=== PATIENT | male | born 1955 | race Caucasian/White ===

== ENCOUNTER 2018-01-19 08:57 | Day surgery (SDC) | payer MEDICARE, MEDICAID, SELFPAY ==
--- NOTE | 2018-01-19 | COLBX_PTH ---
PATIENT: ANDRES TORRES LOC: EN U#:[id number] AGE/SX: 62/M ROOM: RE01/19/[address]: Dr. Paul Silverman MD : 1955 BED: DIS: 01/19/2018 SPEC #: [id number] RECD: 01/19/18 12:15 STATUS: BONIFACIO DAHIANA #: [id number] STEPHANY: 01/19/18 00:[address]: Paul Silverman DEPT: SURGICAL PATHOLOGY RECD BY: Jaleel Perla ENTERED: 01/19/18 12:46 SP TYPE: COLON BX OTHR DR: Dr. Andres Rai MD Tissues: Descending colon Procedures: Surgery Specimen Level IV HEADER OPERATION: Colonoscopy PRE-OP DIAGNOSIS: Rectal bleeding TISSUE SUBMITTED: Descending colon polyp MICROSCOPIC DIAGNOSIS Descending colon polyp, biopsy: Tubulovillous adenoma. SJ:cielo 01/20/18 MICROSCOPIC DESCRIPTION Slides are reviewed. GROSS DESCRIPTION Received in fixative is one container labeled with the patient's name and designated descending colon polyp. The specimen consists of a piece of hunter-pink polyp measuring 0.8 x 0.7 x 0.4 cm. The specimen is totally submitted in one cassette. / SJ:cielo 01/19/18 TC:1 CPT: 27359
[2018-01-19 09:17] VITALS: BP 100/75; PULSE 81; RESP 20; TEMP 36.4; O2SAT 93; BMI 29.5
--- NOTE | 2018-01-19 10:12 | PCM.OPRPT ---
Problem List (1) Rectal bleeding Status: Acute Report of Operation Date of Procedure: 01/19/18 Pre-Operative Diagnosis: k62.5 rectal bleeding Post-Operative Diagnosis: Same Surgery/Procedure Performed:: [id number] colonoscopy with snare polypectomy Type of Anesthesia:: MAC Anesthesiologist: Lane Enriquez Description of Procedure: Patient was brought into the endoscopy suite. Patient was given graded anesthesia and placed in the left lateral decubitus position. Colonoscope was inserted into the rectum. It was directed through the sigmoid colon, descending colon, transverse colon, ascending colon, to the cecum. Operative findings: 1. Cecum: Normal appearance no mass lesions normal ileocecal valve. 2. Ascending colon: Normal appearance no mass lesions. 3. Transverse colon: Normal appearance no mass lesions. 4. Descending colon: Normal appearance no mass lesions. Polyp was removed on a long stalk and brought back to the channel the scope without difficulty 5. Sigmoid colon: Normal appearance no mass lesions. 6. Rectum: Normal appearance no mass lesions retroflexion did show a few internal hemorrhoids which were not actively bleeding. Scope was withdrawn digital rectal exam was performed showing no masses within the anus. Prostate was smooth and small no hard nodules. - Admit VTE Documentation VTE Present on Admission: No VTE Mechan Device Prophylaxis: None VTE Pharm Prophylaxis ordered?: No Reason prophylaxis not ordered:: Treatment Not Indicated
[2018-01-19 10:17] VITALS: BP 100/75; BP 81/55; PULSE 72; RESP 16; TEMP 36.1; O2SAT 100
[2018-01-19 10:22] VITALS: BP 100/75; BP 76/61; PULSE 75; RESP 16; O2SAT 98
[2018-01-19 10:27] VITALS: BP 100/75; BP 101/69; PULSE 70; RESP 18; O2SAT 98
[2018-01-19 10:32] VITALS: BP 100/75; BP 112/77; PULSE 76; RESP 18; TEMP 35.8; O2SAT 96
[2018-01-19 10:45] VITALS: BP 100/75
== END 2018-01-19 10:46 | disposition home or self-care (01) ==
LOC: EN 08:58 → AC 09:08
PROVIDERS: Family Provider Family Medicine; PCP Family Medicine; Visit Provider Surgery
PROC: 0DJD8ZZ Inspection of Lower Intestinal Tract, Via Natural or Artificial Opening Endoscopic (ICD-10-PCS; CPT 45378; principal; 2018-01-19 10:25)
DX: D12.4 Benign neoplasm of descending colon (principal); K62.5 Hemorrhage of anus and rectum; J43.9 Emphysema, unspecified; N40.0 Benign prostatic hyperplasia without lower urinary tract symptoms; E03.9 Hypothyroidism, unspecified; F12.11 Cannabis abuse, in remission; Z87.891 Personal history of nicotine dependence; Z85.818 Personal history of malignant neoplasm of other sites of lip, oral cavity, and pharynx; Z99.81 Dependence on supplemental oxygen; Z79.899 Other long term (current) drug therapy
CPT/HCPCS: 45385; 88305; J7120

== ENCOUNTER 2018-07-25 12:20 | Emergency (ER) | payer MEDICARE, MEDICAID, SELFPAY ==
[2018-07-25 12:21] VITALS: BP 136/78; PULSE 84; RESP 14; TEMP 36.3; O2SAT 94; BMI 14.6
--- NOTE | 2018-07-25 12:53 | ED.DCSUM_ITS ---
- ER Visit Summary Date of Service: 07/25/18 Chief Complaint: Shortness of breath History of Present Illness: The patient is a 62 M with a history of chronic lung cancer who is status post tracheostomy. He presents with increasing cough and sputum from his trach site over several days. He also has a history of COPD. Denies fevers. Denies chest pain. Denies any history of PE. Physical Examination: Afebrile and vital signs are unremarkable. He appears in no acute distress. Sitting comfortably. Breath sounds diminished in all estes. No wheezing. Heart regular rate and rhythm. Skin appears normal. Tracheostomy site appears unremarkable. Test Results: X-ray pending. Emergency Department Course and Treatment: Patient has a reassuring exam and vital signs. He was treated with a DuoNeb treatment and prednisone while awaiting results. Will check a chest x-ray and reevaluate. X-rays were negative. Patient's exam and vital signs are reassuring. He will be treated with a course of prednisone and doxycycline. Follow-up with primary care. Return for any new or worsening issues. Treatment Plan: As above Disposition: Discharge Impression: 1. COPD exacerbation This note was generated with [employer] dictation software. It may contain incorrect words, spelling, and punctuation that were not noted in review of the chart prior to signing ED Disposition - Plan for ED Patient: Chief Complaint: Shortness of Breath Referrals: Av Rai MD [Primary Care Provider] -
[2018-07-25 12:59] VITALS: PULSE 94; RESP 22
[2018-07-25] MEDS: Ipratropium/Albuterol Sulfate 3 ML AMPUL.NEB INHALATION (12:59)
[2018-07-25] MEDS: predniSONE 20 MG Tablet 60 MG PO (12:59)
--- NOTE | 2018-07-25 13:17 | RAD_ITS ---
STUDY: X-RAY CHEST REASON FOR EXAM: Male, 62 years old. Cough TECHNIQUE: Single view of the chest was obtained COMPARISON: May 26, 2017 chest radiograph FINDINGS: No lung consolidation, pleural effusion or pneumothorax. Cardiac size within normal limits. Osseous structures demonstrate no acute abnormalities. Subsegmental atelectasis in the left lower lobe. IMPRESSION: No evidence for focal airspace disease Electronically Signed: Ronnie Nicole, at 13:38 EST Tel , Service support , RAD/Chest 1 View (Portable)
--- NOTE | 2018-07-25 14:09 | ED.DEP ---
ED Disposition - Plan for ED Patient: Chief Complaint: Shortness of Breath Instructions: ED COPD Flare Prescriptions: Prednisone 50 mg PO UD #20 tab Doxycycline Monohydrate 100 mg PO BID #20 cap Referrals: Av Rai MD [Primary Care Provider] -
[2018-07-25 14:37] VITALS: RESP 18; O2SAT 96
[2018-07-25] MEDS: Doxycycline 100 MG CAPSULE PO (14:37)
== END 2018-07-25 14:38 | disposition home or self-care (01) ==
LOC: ED 13:47
PROVIDERS: Emergency Provider Emergency Medicine; Family Provider Family Medicine; PCP Family Medicine
DX: J44.1 Chronic obstructive pulmonary disease with (acute) exacerbation (principal); K21.9 Gastro-esophageal reflux disease without esophagitis; E03.9 Hypothyroidism, unspecified; F12.90 Cannabis use, unspecified, uncomplicated; Z85.118 Personal history of other malignant neoplasm of bronchus and lung; Z85.818 Personal history of malignant neoplasm of other sites of lip, oral cavity, and pharynx; Z93.0 Tracheostomy status; Z79.899 Other long term (current) drug therapy; Z72.0 Tobacco use
CPT/HCPCS: 71045; 94640; 99282

== ENCOUNTER 2019-01-14 07:38 | Day surgery (SDC) | payer MEDICARE, MEDICAID, SELFPAY ==
[2019-01-07 13:46] VITALS: BMI 14.6
--- NOTE | 2019-01-07 13:58 | HP_ITS ---
Intake Vital Signs 01/07/19 Body Mass Index (BMI) 14.6 01/07/19 Height 5 ft 6 in 01/07/19 Weight: 185 lb 4 oz 01/07/19 Body Mass Index (BMI) 29.9 01/07/19 Respiratory Rate 22 H 01/07/19 Pulse Rate 88 Intake Visit Reasons: repeat scope one year, tubulovillus adenoma Chief Complaint: 1 year colonoscopy Supervisor Locomotive Required: No Is patient in pain?: No Allergies hydromorphone HCl [From Dilaudid] Adverse Reaction (Verified 01/07/19 13:45) blood pressure fluctuations/severe sweating Medications Albuterol Aerosols [Ventolin Aerosols] 2.5 mg INHALATION Q2H PRN PRN #1 box 08/08/15 [Rx Confirmed 01/07/19] Ipratropium/Albuterol Sulfate [Duoneb] 3 ml INHALATION Q4H.RT 04/04/16 [History Confirmed 01/07/19] budesonide 0.5 mg/2 mL suspension for nebulization 2 ml INHALATION Q12H 12/29/17 [History Confirmed 01/07/19] levothyroxine 75 mcg tablet 88 mcg PO DAILY tab 12/29/17 [History Confirmed 01/07/19] Doxycycline Monohydrate 100 mg PO BID #20 cap 07/25/18 [Rx Confirmed 01/07/19] Prednisone 50 mg PO UD #20 tab 07/25/18 [Rx Confirmed 01/07/19] PFSH Medical History 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 (Acute) Chronic obstructive airway disease (Chronic) Localized cancer of lip, oral cavity and throat (Chronic) Anxiety and depression (Chronic) History of lung cancer (Acute) Benign prostatic hyperplasia without lower urinary tract symptoms (Acute) Carpal tunnel syndrome of left wrist (Acute) Chronic pulmonary aspiration (Acute) Emphysema lung (Acute) GERD without esophagitis (Acute) History of colon polyps (Acute) Hypothyroidism (Acute) Marijuana abuse (Acute) Surgical History History of colonoscopy (Acute ~12/27/15) History of esophagogastroduodenoscopy (EGD) (Acute ~06/08/15) History of laryngectomy (Acute) S/P colonoscopy (Acute ~12/2017) history right carpal tunnel release (Acute) Family History Father Heart disease Skin cancer Mother Diabetes Alzheimer's dementia Sister COPD (chronic obstructive pulmonary disease) Grandfather Colon cancer Social History Smoking Status: Former smoker alcohol intake: former substance use type: former substance user, marijuana HPI HPI HPI: ANDRES TORRES, is a 63 M who presents to the office today for HPI HPI Surgical H&P: Yes HPI: ANDRES TORRES, is a 63 M who presents to the office today for evaluation for endoscopy. Patient had a colonoscopy on 01/19/2018. He was noted to have a tubulovillous adenoma removed from his descending colon he has been moving his bowels appropriately and presents for repeat colonoscopy ROS General General: No weight change, appetite, fatigue, colon cancer, breast cancer or weakness HEENT HEENT: No difficulty swallowing, eye injury, eye surgery, swollen glands or hoarseness Endo Endocrine: Yes thyroid disease; no diabetes mellitus, thyroid cancer, Hair loss, heat intolerance or cold intolerance Cardio Cardiovascular: No murmur, pacemaker, heart disease, atrial fibrillation, high blood pressure, heart attack, heart stent, palpitations, shortness of breat with exertion or chest pain Resp Respiratory: Yes shortness of breath, No sleep apnea, No cough, No COPD, No asthma, Yes emphysema, No wheezing Gastro Gastrointestinal: No abdominal pain, No nausea or vomiting, No diarrhea, No constipation, No blood in stool, No acid reflux, No hemorrhoids, No ulcers, No gallbladder problem, No black,tarry stools Neuro Neurologic: No weakness Exam Const General: no acute distress, well developed, well hydrated Orientation: oriented to person, oriented to place, oriented to time [facility] Head: normocephalic, atraumatic Ears: external ears normal Mouth: moist mucous membranes Eyes Sclera: sclerae normal Pupils: normal by confrontation Neck Neck: no lymphadenopathy noted Neck mass: No Thyroid: thyroid normal, symmetrical Chest Chest palpation & inspection: normal inspection of the chest Resp Effort & Inspection: normal respiratory effort Auscultation: clear to auscultation bilaterally Percussion: percussion normal Cardio Rate: regular rate Rhythm: regular rhythm Heart Sounds: no murmurs GI Palpation: soft, no hepatosplenomegaly, no masses, nontender Rectal Exam: other Other: Rectal exam deferred. Extrem General: normal to inspection, no clubbing, cyanosis or edema Assessment & Plan Problems 1. Adenomatous polyp of descending colon D12.4 Plan I have discussed the above with the patient. I have offered the patient colonoscopy for evaluation. I have explained the risks/benefits of the procedure and described the procedure. I have discussed the risks with the patient, including but not limited to: infection, bleeding, perforation of the GI tract requiring emergency surgery, inability to complete the procedure, injury to any internal organs, complications of anesthesia, etc. - the patient understands and agrees to proceed. I have answered all the patient's questions to the patient's satisfaction and the patient has no further questions. The patient has been given instructions for the colon cleansing preparation. Orders Orders: Colonoscopy Today D12.6 Coding Level of Care Code Off vis,est,level 3 Diagnoses Adenomatous polyp of descending colon D12.4 ??Colon polyp type: adenomatous ??Colon location: descending 01/07/19 [id number] <Electronically signed by Paul Silverman MD> Date Paul Silverman MD I have re-examined the patient. There are no clinical changes since date of exam.
[2019-01-14] VITALS (7 sets, daily range): BP systolic 113–126; BP diastolic 74–94; PULSE 65–80; RESP 16–18; TEMP 36.1–36.5; O2SAT 92–99; BMI 32.0
--- NOTE | 2019-01-14 09:15 | COLBX_PTH ---
PATIENT: ANDRES TORRES LOC: EN U#:[id number] AGE/SX: 63/M ROOM: RE01/14/[address]: Dr. Paul Silverman MD : 1955 BED: DIS: 01/14/2019 SPEC #: [id number] RECD: 01/14/19 10:15 STATUS: BONIFACIO DAHIANA #: [id number] STEPHANY: 01/14/19 09:[address]: Paul Silverman DEPT: SURGICAL PATHOLOGY RECD BY: Bear Mcmanus ENTERED: 01/14/19 10:54 SP TYPE: COLON BX OTHR DR: Dr. Andres Rai MD Tissues: A - Cecum, NOS B - Transverse colon C - Transverse colon D - Sigmoid colon biopsy Procedures: Surgery Specimen Level IV HEADER OPERATION: Colonoscopy (MAC) PRE-OP DIAGNOSIS: Adenomatous polyp of descending colon TISSUE SUBMITTED: A - Cecum polyps, B - Transverse colon polyp, C - Distal transverse colon polyp, D - Sigmoid polyp MICROSCOPIC DIAGNOSIS A. Cecal polyps, biopsy: Fragments of tubular adenoma. B. Transverse colon polyp, biopsy: Fragments of colonic mucosa with focal hyperplastic change. C. Distal transverse colon polyp, biopsy: Fragments of tubular adenoma. D. Sigmoid polyp, biopsy: Hyperplastic polyp. AM:cielo 01/15/19 MICROSCOPIC DESCRIPTION Slides are reviewed. GROSS DESCRIPTION A - Received in fixative is one container labeled with the patient's name and designated cecal polyps. The specimen consists of multiple irregular fragments of light hunter soft tissue that in aggregate measure 2 x 1 x 0.1 cm. The specimen is totally submitted in one cassette. B - Received in fixative is one container labeled with the patient's name and designated transverse polyp. The specimen consists of multiple irregular fragments of light hunter soft tissue that in aggregate measure 0.3 x 0.2 x 0.1 cm. The specimen is totally submitted in one cassette. C - Received in fixative is one container labeled with the patient's name and designated distal transverse colon. The specimen consists of multiple irregular fragments of light hunter soft tissue that in aggregate measure 0.7 x 0.5 x 0.1 cm. The specimen is totally submitted in one cassette. D - Received in fixative is one container labeled with the patient's name and designated sigmoid polyp. The specimen consists of one irregular fragment of light hunter soft tissue that measures 0.5 x 0.3 x 0.1 cm. The specimen is totally submitted in one cassette. / AM:cielo 01/14/19 TC:5 CPT: 57356 x4
--- NOTE | 2019-01-14 10:06 | OP.ENDO_ITS ---
01/14/2019 Av Rai MD Re : Colonoscopy procedure for Av Greeneliud Dear Dr. Rai This procedure was performed on December. My impressions and recommendations are as follows: Impressions : - Four 3 to 8 mm polyps in the sigmoid colon, in the proximal transverse colon, in the distal transverse colon and in the cecum, removed with a hot snare. Resected and retrieved. - The examination was otherwise normal. Recommendations : - Discharge patient to home. - Resume previous diet. - Continue present medications. - Await pathology results. - Repeat colonoscopy in 1 year for surveillance. - Return to my office in 1 week. My findings are described in the full procedure note, which is enclosed. If I can be of further assistance, please feel free to contact me at Doctor phone number(s): , Fax: [phone], Work: . Sincerely, MD Paul Echavarria MD 01/14/2019 10:05:24 AM This report has been signed electronically.
== END 2019-01-14 10:53 | disposition home or self-care (01) ==
LOC: EN 07:39 → AC 07:41
PROVIDERS: Family Provider Family Medicine; PCP Family Medicine; Referring Provider Family Medicine; Visit Provider Surgery
PROC: 0DJD8ZZ Inspection of Lower Intestinal Tract, Via Natural or Artificial Opening Endoscopic (ICD-10-PCS; CPT 45378; principal; 2019-01-14 09:10)
DX: D12.5 Benign neoplasm of sigmoid colon (principal); D12.3 Benign neoplasm of transverse colon; D12.0 Benign neoplasm of cecum; Z86.010 Personal history of colon polyps; J43.9 Emphysema, unspecified; F32.9 Major depressive disorder, single episode, unspecified; F41.9 Anxiety disorder, unspecified; N40.0 Benign prostatic hyperplasia without lower urinary tract symptoms; K21.9 Gastro-esophageal reflux disease without esophagitis; E03.9 Hypothyroidism, unspecified; Z79.899 Other long term (current) drug therapy; Z87.891 Personal history of nicotine dependence; Z85.818 Personal history of malignant neoplasm of other sites of lip, oral cavity, and pharynx; Z85.118 Personal history of other malignant neoplasm of bronchus and lung
CPT/HCPCS: 45385; 88305; J7120; J1610

== ENCOUNTER → 2019-10-14 06:08 | Outpatient (CLI) | payer MEDICARE, SELFPAY ==
[2019-10-06 13:27] VITALS: BMI 30.8
--- NOTE | 2019-10-14 15:03 | STRESSREP_ITS ---
Stress Test Report Date: 10/14/2019 Procedure: Pharmacologic stress nuclear imaging study Indications: Dyspnea on exertion, chest pain Consent: Per the patient Procedure: The patient underwent pharmacologic (Regadenoson) evaluation with a peak heart rate of 109 beats per minute (68 %predicted maximal heart rate) and a peak blood pressure of 122/86 mmHg. The baseline ECG demonstrated normal sinus rhythm. EKG during lexiscan infusion revealed no significant ischemic changes. EKG post infusion revealed no significant ischemic changes [There were no cardiac dysrhythmias pretest, during pharmacologic infusion, or recovery]. [There was no complaint of chest discomfort during pharmacologic infusion or recovery]. The examination was discontinued secondary to completion of protocol. Impression: 1. Lexiscan stress test test is negative for Lexiscan infusion induced EKG changes of ischemia. 2. Lexiscan stress test test negative for Lexiscan infusion induced chest pain. 3. Results of the nuclear portion of the test is as below Myocardial perfusion imaging study: Technique: The patient was injected with 10.6 millicuries of technetium 99m Cardiolite and subsequently rest SPECT Cardiolite nuclear imaging was obtained in the horizontal long, vertical long, and short axis views. The patient underwent pharmacologic (Regadenoson) evaluation. Please see above for details. The patient was injected with 33.1 millicuries of technetium 99m Cardiolite and subsequently stress SPECT Cardiolite nuclear imaging was obtained in the horizontal long, vertical long, and short axis views. A gated Cardiolite study at peak stress was obtained. Interpretation: Rest and stress SPECT Cardiolite nuclear imaging status post realignment, normalization, and attenuation correction demonstrate normal myocardial radioisotope uptake after attenuation correction. Gated images reveal mild septal hypokinesis. The reported LVEF is 61 %. Impression: 1. There is no evidence of significant ischemia or infarction. 2. Estimated ejection fraction is 61%. This note was generated with [employer] software. It may contain incorrect words, spelling, and punctuation that were not noted in checking the note before signing.
== END ==
PROVIDERS: PCP Family Medicine; Referring Provider Specialist; Visit Provider Specialist
DX: R07.89 Other chest pain (principal); R06.09 Other forms of dyspnea
CPT/HCPCS: 78452; 93017; A9500; A4216; J2785

== ENCOUNTER 2019-10-14 08:22 | Emergency (ER) | payer MEDICARE, SELFPAY ==
[2019-10-06 13:27] VITALS: BMI 30.8
[2019-10-14 08:24] VITALS: BP 125/88; PULSE 102; RESP 17; TEMP 37.2; O2SAT 93; BMI 30.6
--- NOTE | 2019-10-14 08:37 | RAD_ITS ---
STUDY: X-RAY CHEST REASON FOR EXAM: Male, 63 years old. Patient reports increased sob, cough, and changes in sputum x1 week. -- Had stress test this am and came with iv in placE TECHNIQUE: PA and lateral views of the chest. COMPARISON: Comparison is made with prior examination dated July 25, 2018. FINDINGS: EKG electrodes are seen. Hyperinflation. Decreased bilateral bronchovascular markings suggestive of a emphysematous changes. There is no demonstrated pleural abnormality. Normal size heart. Normal mediastinum and johana. Normal visualized pulmonary arteries. There is atherosclerotic calcification of the aortic arch with tortuosity. There is demineralization of the osseous structures. Normal visualized ribs, clavicles, and shoulders. There is no demonstrated abnormality of the visualized soft tissue structures of the upper abdomen. RAD/Chest PA and Lateral IMPRESSION: Hyperinflation. Emphysematous changes. No acute abnormality is seen. Electronically Signed: Julio Starks, at 10:19 EST , Service support ,
--- NOTE | 2019-10-14 08:39 | ED.VIS.GEN ---
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 He states he is using more oxygen than he ever has before. He denies any fevers. He notes some rhinorrhea. No vomiting or diarrhea. He came to the emergency department after having a stress test. This was being performed by cardiology and work-up for pulmonary hypertension as well as episodes of syncope at the end of last year. He had pneumonia in August of last year and since that time is yet to regain pulmonary baseline from before that episode. He sees Dr. Gr from [facility]. Past Medical History - Allergies and Home Meds Allergies/Adverse Reactions: Allergies hydromorphone HCl [From Dilaudid] Adverse Reaction (Verified 10/14/19 08:24) blood pressure fluctuations/severe sweating Primary Care Physician: Av Rai MD [Primary Care Provider] - Surgical History: - - Bx for dx throat/lip CA otherwise no surgeries, PEG. Smoking Status: Former smoker - Family History Maternal Family History: Family History (Last Reviewed 10/06/19 @ 14:48 by Mariann Hyde MD) Father Heart disease Skin cancer Mother Diabetes Alzheimer's dementia Sister COPD (chronic obstructive pulmonary disease) Grandfather Colon cancer Family History: Reports: Diabetes Paternal Family History: Family History (Last Reviewed 10/06/19 @ 14:48 by Mariann Hyde MD) Father Heart disease Skin cancer Mother Diabetes Alzheimer's dementia Sister COPD (chronic obstructive pulmonary disease) Grandfather Colon cancer Family History: Reports: Diabetes Review of Systems General: Reports: Chills. Denies: Fever, Sweats Eyes: Denies: Visual changes - bilaterally, Diplopia ENT: Reports: Rhinorrhea. Denies: Sore throat Cardiovascular: Denies: Chest pain, Palpitations Respiratory: Reports: Dyspnea, Cough, Sputum, Dyspnea on exertion Gastrointestinal: Denies: Abdominal pain, Nausea, Vomiting, Diarrhea, Melena, Hematochezia Genitourinary: Denies: Dysuria, Hematuria, Frequency Musculoskeletal: Denies: Back pain, Extremity Pain Skin: Denies: Rash, Wounds Neurological: Denies: Headache, Weakness, Numbness Physical Exam Vital Signs/Narrative: Vital Signs Temp Pulse Resp BP Pulse Ox 10/14/19 08:24 99.0 F 102 H 17 125/88 H 93 Inital Vital Signs reviewed: Yes General: Well nourished, Well developed, No Acute Distress Head: Normocephalic, Atraumatic Eyes: Perrl, EOMI ENT: Moist mucous membranes, Nasal congestion Neck: Supple, Nontender, - - Trach site clean dry intact Cardiovascular: Regular rate, Regular rhythm, No murmurs Respiratory: No distress, Chest nontender, Rhonchi, Wheezing Abdomen: Soft, Nontender, Nondistended, Normal bowel sounds Back: Nontender, Normal Inspection Extremities: Nontender, No edema Skin: Normal color, No rash Neurological: Alert, Oriented x3, Cranial nerves II-XII grossly intact, Normal Strength, Normal Sensation Psychological: Normal affect, Normal Mood Diagnostic/Tx/Re-eval - Medical Decision Making Basic labs are normal. Influenza swab negative. Chest x-ray no infiltrate. We are able to obtain a suction sputum specimen which will be sent for culture. He received aerosols and Solu-Medrol. I will start him on burst dose prednisone and Levaquin. The patient will follow up with his hand painter. We talked about admission but at this point he states he can give himself aerosols at home and he has enough oxygen to keep his sats at 90 or above. He would prefer not to stay in the hospital and has he is otherwise able to care for himself I think this is a reasonable option for him. He will return if worsening or concerns ED Disposition - Plan for ED Patient: Disposition: Home or Assisted Living Diagnosis: COPD with exacerbation Instructions: Copd Flare Prescriptions: Levofloxacin [Levaquin] 750 mg PO DAILY #5 tab Transmission Status: Pending to [facility]/pharmacy #[id number] predniSONE tablet 60 mg PO DAILY #15 tab Transmission Status: Pending to [facility]/pharmacy #[id number] Referrals: Av Rai MD [Primary Care Provider] - As Needed Additional Instructions: Follow-up with your hand painter. I would call for early follow-up appointment next week.
[2019-10-14 08:48] VITALS: O2SAT 85; O2SAT 94
[2019-10-14] MEDS: MethylPREDNISolone 125 MG/2 ML Vial IV (08:52)
[2019-10-14] MEDS: Ipratropium/Albuterol Sulfate 3 ML AMPUL.NEB INHALATION (09:17)
[2019-10-14] MEDS: Albuterol 2.5 MG/3 ML VIAL.NEB. INHALATION ×3 (09:17)
[2019-10-14 09:18] VITALS: PULSE 89; RESP 20
[2019-10-14 09:53] LABS: Absolute Lymphocyte Count 1.07 X10^3/uL (0.83-4.51); Absolute Neutrophil Count 4.9 X10^3/uL (2.0-7.7); Basophil# 0.05 X10^3/uL; Basophil% 0.7 % (0-1); Eosinophil# 0.07 X10^3/uL; Hematocrit 45.3 % (40-54); Hemoglobin 14.9 g/dL (13.0-16.5); Lymphocyte # 1.07 X10^3/ul (4.0); Lymphocyte % 15.4 % (19-41); Mean Corp Hgb Conc 32.9 g/dL (32-36); Mean Corpuscular Hgb 30.3 pg (27.0-32.0); Mean Corpuscular Volume 92.1 fL (80-94); Mean Platelet Vol. 9.5 fl (6.2-12.0); Monocyte# 0.87 X10^3/uL; Monocyte% 12.5 % (0-10); NRBC Flagged by Analyzer 0 % (0-5); Neutrophil # 4.87 X10^3/uL (2.7-7.7); Neutrophil % 70.3 % (47-70); Platelet Count 197 K/mm3 (150-450); RBC Distribution Width CV 13.2 % (11.6-14.6); RBC Distribution Width SD 45.1 fl (35.1-43.9); Red Blood Count 4.92 M/mm3 (4.6-6.2); White Blood Count 6.9 K/mm3 (4.4-11.0)
[2019-10-14 10:08] LABS: ALB/GLOB Ratio 0.9 RATIO (0.9-2.4); AST(SGOT) 18 U/L (15-37); Alanine Aminotransfer ALT/SGPT 24 U/L (16-61); Albumin, Serum 3.7 g/dL (3.2-5.0); Alkaline Phosphatase 62 U/L (45-117); Anion Gap 5 (5-15); BUN 16 mg/dL (7-18); BUN/Creat Ratio 17.4 RATIO (10-20); Chloride 102 mmol/L (98-107); Creatinine, Serum 0.92 mg/dL (0.70-1.30); EST Glomerular Filtration Rate 88 mL/min (>60); Est Glom Filt Rate - Afr Amer 107 mL/min (>60); Estimated Creatinine Clearance 76.09 ml/min; Globulin 3.9 g/dL (2.2-4.2); Glucose 100 mg/dL (74-106); Potassium 4.2 mmol/L (3.5-5.1); Protein, Total 7.6 g/dL (6.4-8.2); Sodium Level 138 mmol/L (136-145)
[2019-10-14 10:22] LABS: Lactic Acid 0.7 mmol/L (0.4-1.9)
[2019-10-14 10:23] VITALS: BP 120/71; PULSE 97; RESP 21; O2SAT 98
[2019-10-14 10:43] VITALS: BP 120/71; PULSE 98; RESP 33; O2SAT 93
== END 2019-10-14 10:51 | disposition home or self-care (01) ==
PROVIDERS: Emergency Provider Emergency Medicine; PCP Family Medicine
DX: J44.1 Chronic obstructive pulmonary disease with (acute) exacerbation (principal); J34.89 Other specified disorders of nose and nasal sinuses; E03.9 Hypothyroidism, unspecified; Z87.891 Personal history of nicotine dependence; Z85.819 Personal history of malignant neoplasm of unspecified site of lip, oral cavity, and pharynx; Z85.09 Personal history of malignant neoplasm of other digestive organs
CPT/HCPCS: 71046; 78452; 80053; 83605; 84484; 85025; 87040; 87070; 87077; 87186; 87205; 87804; 93017; 94640; 96374; 99251; 99283; A9500; A4216; G0463; J2785

== ENCOUNTER → 2019-10-20 12:34 | Outpatient (CLI) | payer MEDICARE, SELFPAY ==
[2019-10-20 11:40] VITALS: BMI 30.9
[2019-10-20 13:57] LABS: Prothrombin Time (Protime)PT. 13.2 SECONDS (11.7-14.9)
[2019-10-20 13:58] LABS: Partial Thromboplast Time 31.7 Seconds (24.1-36.2)
== END ==
PROVIDERS: PCP Family Medicine; Referring Provider Specialist; Visit Provider Specialist
DX: R55 Syncope and collapse (principal)
CPT/HCPCS: 36415; 85610; 85730

== ENCOUNTER 2019-10-22 09:43 | Day surgery (SDC) | payer MEDICARE, SELFPAY ==
[2019-10-20 11:40] VITALS: BMI 30.9
[2019-10-21 08:41] VITALS: BMI 30.9
[2019-10-22 12:51] LABS: Blood Gas Specimen Type VEN; VBG BASE EXCESS 9 mmol/L (-1.0-3.5); VBG Bicarbonate 35 mmol/L (22-26); VBG Oxygen Content 37 mmol/L (23-33); VBG PO2 38 mmHg (25-40); VBG SO2 68 % (50-70); VBG pCO2 60.5 mmHg (41-51); VBG pH 7.37 (7.32-7.42)
[2019-10-22 12:51] LABS: Blood Gas Specimen Type VEN; VBG BASE EXCESS 9 mmol/L (-1.0-3.5); VBG Bicarbonate 34 mmol/L (22-26); VBG Oxygen Content 36 mmol/L (23-33); VBG PO2 37 mmHg (25-40); VBG SO2 65 % (50-70); VBG pCO2 62.2 mmHg (41-51); VBG pH 7.35 (7.32-7.42)
[2019-10-22 12:51] LABS: Blood Gas Specimen Type VEN; VBG BASE EXCESS 7 mmol/L (-1.0-3.5); VBG Bicarbonate 33 mmol/L (22-26); VBG Oxygen Content 35 mmol/L (23-33); VBG PO2 36 mmHg (25-40); VBG SO2 63 % (50-70); VBG pCO2 61.4 mmHg (41-51); VBG pH 7.33 (7.32-7.42)
--- NOTE | 2019-10-28 11:41 | CL.D_ITS ---
Patient Name: ANDRES TORRES Study Date: 10/22/2019 Performing: Loy Hyde MD Ht: 66 inches 168 cm : 1955 Wt: 192.1 lbs 87 kg Age: 63 Gender: male BSA: 1.97 PROCEDURE(S) PERFORMED DR01-QRA ONLY CLINICAL PROFILE AND INDICATIONS Indications: Syncope Heart Failure: None Stress/Imaging Stress Test w/SPECT MPI: Yes Result: NegativeStress Test with SPECT MPI: Negative CAD Presentations: Other: RHC for syncope and pulm HTN CONCLUSIONS Elevated pulmonary artery pressure. Normal wedge pressure. Elevated Pulmonary vascular resistance. RECOMMENDATIONS DESCRIPTION OF PROCEDURE The patient arrived to the procedure lab. The risks and benefits of the procedure as well as a full d escription of our services here and current unavailability of surgical backup were fully explained to the patient and/or their significant other prior to the catheterization. The Timeout was completed, verifying the correct patient and procedure. The patient's procedural site was prepped and draped in the usual fashion. Local anesthetic was given subcutaneously to right brachial region with Lidocaine 2%. Using a modified Seldinger technique, Venous access was obtained via the right brachiocephalic v ein, with Micropuncture set A 7Fr thermal dilution catheter was inserted and right heart pressures we re recorded, it was then advanced to PA position for cardiac outputs. Thermal dilution cardiac output s were then recorded. O2 saturations were then obtained. The Thermal dilution catheter was then remov ed.The venous sheath was then pulled and manual compression applied until hemostasis achieved CORONARY ANGIOGRAPHY RIGHT HEART ASSESSMENT Lila CO: 4.17 Lila CI: 2.12 PW: 12 PA: 46/27 34 RV: 44/13 17 RA: 07/12 9 PVR: 395 COMPLICATIONS No Complications PROCEDURE MEDICATIONS Oxygen: 2 L/min via trach collar Oxygen: Discontinued SUMMARY OF HEMODYNAMIC DATA Time AIR REST ECG 10:09:07 PW (12) PV 11:43:01 PW (15) 11:43:16 PA 46/27 (34) PA 11:43:42 RV 44/13, 17 11:45:05 RA 07/12 (9) SV 11:46:39 Type SV CO (l/m) CI (l/m/ HR Time AIR REST Lila 46.30 4.17 2.12 90 10:09:07 Label % O2 Pres/Loc Time AIR REST AO 94 PV 11:47:11 PA 65 PA 11:48:36 RV 68 11:50:51 RA 63 SV 11:53:58 Signed By Loy Hyde MD On 10/28/2019 11:40:45 Loy Hyde MD
== END 2019-10-22 13:25 | disposition home or self-care (01) ==
LOC: CLSP 09:44
PROVIDERS: PCP Family Medicine; Referring Provider Specialist; Visit Provider Specialist
DX: R55 Syncope and collapse (principal); R07.89 Other chest pain; I27.20 Pulmonary hypertension, unspecified; J44.9 Chronic obstructive pulmonary disease, unspecified; E03.9 Hypothyroidism, unspecified; K21.9 Gastro-esophageal reflux disease without esophagitis; Z79.899 Other long term (current) drug therapy
CPT/HCPCS: 82803; 93451; J7040; Q9967; C1751; C1769; C1894

== ENCOUNTER 2020-01-31 07:21 | Day surgery (SDC) | payer MEDICARE, SELFPAY ==
[2020-01-25 08:24] VITALS: BMI 30.4
--- NOTE | 2020-01-31 | COLBX_PTH ---
PATIENT: ANDRES TORRES LOC: EN U#:[id number] AGE/SX: 64/M ROOM: RE01/31/[address]: Dr. Paul Silverman MD : 1955 BED: DIS: 01/31/2020 SPEC #: [id number] RECD: 01/31/20 12:15 STATUS: BONIFACIO DAHIANA #: [id number] STEPHANY: 01/31/20 00:[address]: Paul Silverman DEPT: SURGICAL PATHOLOGY RECD BY: Victorino Valadez ENTERED: 01/31/20 12:15 SP TYPE: COLON BX OTHR DR: Dr. Andres Rai MD Tissues: Sigmoid colon biopsy Procedures: Surgery Specimen Level IV HEADER OPERATION: Colonoscopy (MAC) PRE-OP DIAGNOSIS: History colon polyps TISSUE SUBMITTED: Rectosigmoid polyp biopsy MICROSCOPIC DIAGNOSIS Rectosigmoid polyp, biopsy: Hyperplastic polyp. SJ:cielo 02/01/20 MICROSCOPIC DESCRIPTION Slides are reviewed. GROSS DESCRIPTION Received in fixative is one container labeled with the patient's name and designated rectosigmoid polyp biopsy. The specimen consists of one irregular fragment of light hunter soft tissue that measures 0.4 x 0.2 x 0.1 cm. The specimen is totally submitted in one cassette. / AM:cielo 01/31/20 TC:1 CPT: 77988
[2020-01-31 07:54] VITALS: BP 108/77; PULSE 93; RESP 18; TEMP 36.6; O2SAT 96; BMI 27.0
--- NOTE | 2020-01-31 08:36 | HP.PCM_ITS ---
History and Physical Date of Admission: 01/31/20 [facility] [address] [place] [address] OFFICE VISIT Date of Service: 01/25/20 MR#: [id number] Acct: [id number] Name: ANDRES TORRES Rep #: [id number] : 1955 Provider: Dr. Rolo Silverman MD Age/Sex: 64/M Location: [facility] Status: Signed Intake Vital Signs 01/25/20 BP 138/95 H 01/25/20 Blood Pressure Location Lt brachial 01/25/20 Position Sitting 01/25/20 Height 5 ft 6 in 01/25/20 Weight: 189 lb 01/25/20 BMI 30.4 01/25/20 BP 150/98 H 01/25/20 Blood Pressure Location Rt brachial 01/25/20 Position Sitting 01/25/20 Respiration 16 01/25/20 Pulse 89 01/25/20 Pulse Source Monitor 01/25/20 Temp 98.2 F 01/25/20 Temp Source Temporal 01/25/20 Pulse Oximetry (%) 99 01/25/20 Oxygen Delivery Method room air 01/25/20 BMI 30.9 Intake Visit Reasons: C-Scope/Polyps Chief Complaint: 1 year colonoscopy Broach Trouble Shooter Required: No Is patient in pain?: No Allergies hydromorphone HCl [From Dilaudid] Adverse Reaction (Verified 10/20/19 11:41) blood pressure fluctuations/severe sweating Medications budesonide 0.5 mg/2 mL suspension for nebulization 2 ml INHALATION Q12H 12/29/17 [History Confirmed 01/25/20] ipratropium 0.5 mg-albuterol 3 mg (2.5 mg base)/3 mL nebulization soln 3 ml INHALATION Q4H PRN ml 10/06/19 [History Confirmed 01/25/20] levothyroxine 100 mcg tablet 100 mcg PO DAILY tab 01/25/20 [History Confirmed 01/25/20] oxygen-air delivery systems See Rx Instructions .ROUTE .MEDSUPPLY #1 01/25/20 [History] sodium chloride 0.9 % for nebulization ml INHALATION 01/25/20 [History Confirmed 01/25/20] PFSH Medical History History of pulmonary hypertension (Acute) Chronic obstructive airway disease (Chronic) Localized cancer of lip, oral cavity and throat (Chronic) Anxiety and depression (Chronic) Benign prostatic hyperplasia without lower urinary tract symptoms (Chronic) Carpal tunnel syndrome of left wrist (Chronic) Chronic pulmonary aspiration (Chronic) 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) Emphysema lung (Chronic) GERD without esophagitis (Chronic) History of colon polyps (Chronic) Hypothyroidism (Chronic) Marijuana abuse (Chronic) History of lung cancer (Resolved) Surgical History History of tracheostomy (Chronic) History of laryngectomy (Chronic) History of carpal tunnel surgery of right wrist (Resolved) History of colonoscopy (Resolved ~12/27/15) History of esophagogastroduodenoscopy (EGD) (Resolved ~06/08/15) S/P colonoscopy (Resolved ~12/2017) Family History Father Heart disease Skin cancer Mother Diabetes Alzheimer's dementia Sister COPD (chronic obstructive pulmonary disease) Grandfather Colon cancer Social History (Updated 01/25/20 @ 08:[address] Paul Silverman MD) Smoking Status: Former smoker how long ago did patient quit smokin years ago alcohol intake: current alcohol intake frequency: a few times a week substance use type: former substance user, marijuana caffeine: Yes Type: coffee HPI HPI HPI: ANDRES TORRES, is a 64 M who presents to the office today for Evaluation for colonoscopy. I performed a colonoscopy on him in January of last year. Patient was noted to have several large polyps in the cecum transverse and distal colon as well as a hyperplastic polyp in the sigmoid colon the cecal one was quite large and it needed to come out in piecemeal fashion and I thought that it would be best if we do a repeat year follow-up on this just to make sure that there was no residual polypoid lesions within the cecum. Patient states that he has been moving his bowels without difficulty has not noticed any blood and is not experiencing any overt abdominal discomfort. Exam Const General: no acute distress, well developed, well hydrated Orientation: oriented to person, oriented to place, oriented to time HENGA Head: normocephalic, atraumatic Ears: external ears normal Mouth: moist mucous membranes Other: Patient has oxygen going on his Tracheostomy. Eyes Sclera: sclerae normal Pupils: normal by confrontation Neck Neck: no lymphadenopathy noted Neck mass: No Thyroid: thyroid normal, symmetrical Chest Chest palpation & inspection: normal inspection of the chest Resp Effort & Inspection: normal respiratory effort Auscultation: clear to auscultation bilaterally Percussion: percussion normal Cardio Rate: regular rate Rhythm: regular rhythm GI Palpation: soft, no hepatosplenomegaly, no masses, nontender Rectal Exam: other Other: Rectal exam deferred. Extrem General: normal to inspection, no clubbing, cyanosis or edema Assessment & Plan Problems 1. Encounter for colonoscopy due to history of colonic polyp Z12.11; Z86.010 Plan I have discussed the above with the patient. I have offered the patient colonoscopy for evaluation. I have explained the risks/benefits of the procedure and described the procedure. I have discussed the risks with the patient, including but not limited to: infection, bleeding, perforation of the GI tract requiring emergency surgery, inability to complete the procedure, injury to any internal organs, complications of anesthesia, etc. - the patient understands and agrees to proceed. I have answered all the patient's questions to the patient's satisfaction and the patient has no further questions. The patient has been given instructions for the colon cleansing preparation. Coding Level of Care Code Off vis,est,level 3 Diagnoses Encounter for colonoscopy due to history of colonic polyp Z12.11; Z86.010 01/25/20 0837 <Electronically signed by Paul anand MD> Date _ Paul Silverman MD Cosigner Signature: Date (if applicable) CC: Dr. Andres Rai MD ~ I have re-examined the patient. There are no clinical changes since date of exam.
--- NOTE | 2020-01-31 09:04 | OP.CCLET_ITS ---
04/05/2020 Av Rai MD Re : Colonoscopy procedure for Av Levy Dear Dr. Rai This procedure was performed on Friday, January 31, 2020. My impressions and recommendations are as follows: Impressions : - Diverticulosis in the sigmoid colon. No specimens collected. - The examination was otherwise normal. Recommendations : - Discharge patient to home. - Resume previous diet. - Continue present medications. - Repeat colonoscopy in 5 years for surveillance. - Return to primary care physician in 1 week. My findings are described in the full procedure note, which is enclosed. If I can be of further assistance, please feel free to contact me at Doctor phone number(s): , Fax: [phone], Work: . Sincerely, MD Paul Echavarria MD 01/31/2020 9:03:55 AM This report has been signed electronically.
--- NOTE | 2020-01-31 09:04 | OP.COLON_ITS ---
Patient Name: Av Levy Procedure Date: 01/31/2020 8:44 AM Date of : 1955 Age: 64 Procedure: Colonoscopy Indications: High risk colon cancer surveillance: Personal history of colonic polyps Providers: Paul Silverman MD Referring MD: Av Rai MD Medicines: See the Anesthesia note for documentation of the administered medications Patient Profile: This is a 64 year old male. Refer to note in patient chart for documentation of history and physical. Last Colonoscopy: December 2018. Complications: No immediate complications. Procedure: Pre-Anesthesia Assessment: - Prior to the procedure, a History and Physical was performed, and patient medications and allergies were reviewed. The patient's tolerance of previous anesthesia was also reviewed. The risks and benefits of the procedure and the sedation options and risks were discussed with the patient. All questions were answered, and informed consent was obtained. Prior Anticoagulants: The patient has taken no previous anticoagulant or antiplatelet agents. ASA Grade Assessment: II - A patient with mild systemic disease. After reviewing the risks and benefits, the patient was deemed in satisfactory condition to undergo the procedure. After I obtained informed consent, the scope was passed under direct vision. Throughout the procedure, the patient's blood pressure, pulse, and oxygen saturations were monitored continuously. The colonoscope was introduced through the anus and advanced to the cecum, identified by appendiceal orifice and ileocecal valve. The colonoscopy was performed without difficulty. The patient tolerated the procedure well. The quality of the bowel preparation was good. Scope In: 8:51:04 AM Scope Withdrawal Time 0 hours 7 minutes 33 seconds Scope Out: 9:01:05 AM Total Procedure Duration Time 0 hours 10 minutes 1 second Findings: A few small-mouthed diverticula were found in the sigmoid colon. No biopsies or other specimens were collected for this exam. The exam was otherwise without abnormality. Impression: - Diverticulosis in the sigmoid colon. No specimens collected. - The examination was otherwise normal. Recommendation: - Discharge patient to home. - Resume previous diet. - Continue present medications. - Repeat colonoscopy in 5 years for surveillance. - Return to primary care physician in 1 week. Procedure Code(s): --- Professional --- 89675, Colonoscopy, flexible; diagnostic, including collection of specimen(s) by brushing or washing, when performed (separate procedure) Diagnosis Code(s): --- Professional --- Z86.010, Personal history of colonic polyps K57.30, Diverticulosis of large intestine without perforation or abscess without bleeding CPT copyright 2017 [employer]. All rights reserved. The codes documented in this report are preliminary and upon instructional media services technician review may be revised to meet current compliance requirements. MD Paul Echavarria MD 01/31/2020 9:03:55 AM This report has been signed electronically. Number of Addenda: 1 Note Initiated On: 01/31/2020 8:44 AM Addendum Number: 1 Addendum Date: 04/05/2020 8:46:57 AM A polyp was removed from the rectosigmoid junction with biopsy forceps that had a hyperplastic appearance to it. Good pneumostasis was noted MD Paul Echavarria MD 04/05/2020 8:47:43 AM This report has been signed electronically.
[2020-01-31 09:05] VITALS: BP 102/74; BP 108/77; PULSE 81; RESP 16; TEMP 36.1; O2SAT 95
[2020-01-31 09:10] VITALS: BP 105/75; BP 108/77; PULSE 77; RESP 18; O2SAT 95
[2020-01-31 09:15] VITALS: BP 106/88; BP 108/77; PULSE 77; RESP 18; O2SAT 95
[2020-01-31 09:20] VITALS: BP 102/80; BP 108/77; PULSE 74; RESP 18; TEMP 36.4; O2SAT 99
[2020-01-31 09:54] VITALS: BP 108/77
== END 2020-01-31 09:55 | disposition home or self-care (01) ==
LOC: EN 07:22 → AC 07:22
PROVIDERS: PCP Family Medicine; Referring Provider Family Medicine; Visit Provider Surgery
PROC: 0DJD8ZZ Inspection of Lower Intestinal Tract, Via Natural or Artificial Opening Endoscopic (ICD-10-PCS; CPT 45378; principal; 2020-01-31 08:40)
DX: Z12.11 Encounter for screening for malignant neoplasm of colon (principal); K57.30 Diverticulosis of large intestine without perforation or abscess without bleeding; D12.8 Benign neoplasm of rectum; J44.9 Chronic obstructive pulmonary disease, unspecified; I27.20 Pulmonary hypertension, unspecified; K21.9 Gastro-esophageal reflux disease without esophagitis; E03.9 Hypothyroidism, unspecified; Z86.010 Personal history of colon polyps; Z85.118 Personal history of other malignant neoplasm of bronchus and lung; Z87.891 Personal history of nicotine dependence; Z11.59 Encounter for screening for other viral diseases
CPT/HCPCS: 45380; 87635; 88305; G2023; J7120; J1610; U0004

== ENCOUNTER 2023-02-01 19:21 | Inpatient (IN) | payer MEDICARE, SELFPAY ==
[2023-02-01] VITALS (12 sets, daily range): BP systolic 70–181; BP diastolic 44–118; PULSE 94–155; RESP 18–38; TEMP 36.9–38.8; O2SAT 82–98; BMI 26.6
[2023-02-01] MEDS: MethylPREDNISolone 125 MG/2 ML Vial IV (19:30)
[2023-02-01] MEDS: Ipratropium/Albuterol Sulfate 3 ML AMPUL.NEB INHALATION (19:33)
--- NOTE | 2023-02-01 19:36 | EDS_ITS ---
HPI <KELY Hurst - Last Filed: 02/01/23 20:49> History of Present Illness Chief Complaint: Shortness of Breath Narrative Narrative: 67-year-old male with complicated history, esophageal cancer s/p laryngectomy with tracheostomy, COPD presents in respiratory distress. Daughter states over the last month he had a COPD exacerbation and was in [facility]. He had an NSTEMI secondary to the stress but they did a heart catheterization and there were no blockages. He went to [facility] for recovery. Daughter was not happy with his care there and he ended up being discharged yesterday. He went home with the new tracheostomy tubing and wears chronic O2. He is in more respiratory distress today despite turning the oxygen up. PFS <KELY Hurst - Last Filed: 02/01/23 20:49> [facility] Medical History (Updated 02/01/23 @ 23:[address] 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 Emphysema lung GERD without esophagitis History of colon polyps History of lung cancer History of pulmonary hypertension Hypothyroidism Localized cancer of lip, oral cavity and throat Marijuana abuse Home Medications budesonide 0.5 mg/2 mL suspension for nebulization (Pulmicort) 2 ml inhalation Q12H 12/29/17 [History Last Taken 01/31/20 05:00 2 ML] ipratropium 0.5 mg-albuterol 3 mg (2.5 mg base)/3 mL nebulization soln 3 ml inhalation Q6H 10/06/19 [History Last Taken 01/31/20 05:00 3 ML] levothyroxine 100 mcg tablet 100 mcg PO DAILY 01/25/20 [History Last Taken 01/30 05:00 100 MCG] oxygen-air delivery systems ##1 01/25/20 [History Last Taken Unknown] guaifenesin 1,200 mg tablet, extended release 12 hr 600 mg PO BID 01/27/20 [History Last Taken Unknown] arformoterol 15 mcg/2 mL solution for nebulization 2 ml inhalation BID 02/01/23 [History Last Taken Unknown] aspirin 81 mg capsule 81 mg PO DAILY 02/01/23 [History Last Taken Unknown] metoprolol tartrate 25 mg tablet 25 mg PO BID 02/01/23 [History Last Taken Unknown] nitroglycerin 0.4 mg sublingual tablet 0.4 mg sublingual Q5M PRN Chest Pain 02/01/23 [History Last Taken Unknown] prednisone 10 mg tablet 10 mg PO DAILY 02/01/23 [History Last Taken Unknown] roflumilast 500 mcg tablet 500 mcg PO DAILY 02/01/23 [History Last Taken Unknown] Allergy/AdvReac Type Severity Reaction Status Date / Time hydromorphone HCl AdvReac blood Verified 02/01/23 19:22 [From Dilaudid] pressure fluctuations/severe sweating Family History Father Heart disease Skin cancer Mother Diabetes Alzheimer's dementia Sister COPD (chronic obstructive pulmonary disease) Grandfather Colon cancer Surgical History History of carpal tunnel surgery of right wrist History of colonoscopy (~12/27/15) History of esophagogastroduodenoscopy (EGD) (~06/08/15) History of laryngectomy History of tracheostomy S/P colonoscopy (~12/2017) Social History Smoking Status: Former smoker how long ago did patient quit smokin years ago alcohol intake: current alcohol intake frequency: a few times a week substance use type: former substance user and marijuana caffeine: Yes Type: coffee ROS <KELY Hurst - Last Filed: 02/01/23 20:49> ROS ED ROS Narrative Constitutional: Negative for fever, chills, malaise. CVS: Negative for chest pain. Respiratory: Positive for shortness of breath. Neuro: Negative for headache. EXAM <KELY Hurst - Last Filed: 02/01/23 20:49> Physical Exam Narrative Exam Narrative: CONST: Patient sitting upright in severe respiratory distress. EYES: Normal inspection. ENT: Normal inspection, moist mucous membranes. NECK: Tracheostomy device intact. Retractions. RESP: Tachypneic at 30/minute, intercostal retractions, severely diminished lung sounds. CVS: Rapid but regular rhythm, no murmur, no gallop. SKIN: Color normal, no rash, warm, dry, intact. EXTREMITIES: Normal appearance, no pedal edema. PSYCH: Normal affect. Const Vital Signs: 02/01/23 19:22 02/01/23 19:25 02/01/23 19:26 Temperature 99.9 F H Temperature Source Temporal Pulse Rate 152 H 144 H Respiratory Rate 28 H 30 H Respiratory Effort Short of Breath Labored Accessory Muscle Use Respiratory Pattern Blood Pressure 178/101 H Blood Pressure Mean 126 Pulse Ox 82 90 Oxygen Delivery Method Trach Collar Trach Collar Oxygen Flow Rate (L/min) 10 10 02/01/23 19:35 02/01/23 19:59 02/01/23 20:37 Temperature 101.9 F H 99.8 F H Temperature Source Temporal Temporal Pulse Rate 140 H 155 H 127 H Respiratory Rate 32 H 38 H 24 H Respiratory Effort Respiratory Pattern Blood Pressure 158/90 H 181/118 H 72/44 L Blood Pressure Mean 112 139 53 Pulse Ox 95 92 90 Oxygen Delivery Method Trach Collar Trach Collar Trach Collar Oxygen Flow Rate (L/min) 10 10 10 02/01/23 19:33 02/01/23 21:02 02/01/23 21:49 Temperature 98.5 F 98.6 F Temperature Source Temporal Temporal Pulse Rate 153 H 110 H 109 H Respiratory Rate 32 H 18 20 H Respiratory Effort Respiratory Pattern Tachypnea Blood Pressure 70/45 L 97/75 Blood Pressure Mean 53 82 Pulse Ox 95 97 Oxygen Delivery Method Mechanical Ventilator Mechanical Ventilator Oxygen Flow Rate (L/min) 02/01/23 22:05 02/01/23 21:00 02/01/23 22:48 Temperature 98.6 F Temperature Source Temporal Pulse Rate 104 H 115 H 99 Respiratory Rate 20 H 23 H 27 H Respiratory Effort Respiratory Pattern Tachypnea Tachypnea Blood Pressure 82/58 L Blood Pressure Mean 66 Pulse Ox 98 98 94 Oxygen Delivery Method Mechanical Ventilator Oxygen Flow Rate (L/min) <Dr. Jane Osei, DO - Last Filed: 02/02/23 17:44> Physical Exam Const Vital Signs: 02/01/23 19:22 02/01/23 19:25 02/01/23 19:26 Temperature 99.9 F H Temperature Source Temporal Pulse Rate 152 H 144 H Respiratory Rate 28 H 30 H Respiratory Effort Short of Breath Labored Accessory Muscle Use Respiratory Pattern Blood Pressure 178/101 H Blood Pressure Mean 126 Pulse Ox 82 90 Oxygen Delivery Method Trach Collar Trach Collar Oxygen Flow Rate (L/min) 10 10 02/01/23 19:35 02/01/23 19:59 02/01/23 20:37 Temperature 101.9 F H 99.8 F H Temperature Source Temporal Temporal Pulse Rate 140 H 155 H 127 H Respiratory Rate 32 H 38 H 24 H Respiratory Effort Respiratory Pattern Blood Pressure 158/90 H 181/118 H 72/44 L Blood Pressure Mean 112 139 53 Pulse Ox 95 92 90 Oxygen Delivery Method Trach Collar Trach Collar Trach Collar Oxygen Flow Rate (L/min) 10 10 10 02/01/23 19:33 02/01/23 21:02 02/01/23 21:49 Temperature 98.5 F 98.6 F Temperature Source Temporal Temporal Pulse Rate 153 H 110 H 109 H Respiratory Rate 32 H 18 20 H Respiratory Effort Respiratory Pattern Tachypnea Blood Pressure 70/45 L 97/75 Blood Pressure Mean 53 82 Pulse Ox 95 97 Oxygen Delivery Method Mechanical Ventilator Mechanical Ventilator Oxygen Flow Rate (L/min) 02/01/23 22:05 02/01/23 21:00 02/01/23 22:48 Temperature 98.6 F Temperature Source Temporal Pulse Rate 104 H 115 H 99 Respiratory Rate 20 H 23 H 27 H Respiratory Effort Respiratory Pattern Tachypnea Tachypnea Blood Pressure 82/58 L Blood Pressure Mean 66 Pulse Ox 98 98 94 Oxygen Delivery Method Mechanical Ventilator Oxygen Flow Rate (L/min) MDM <KELY Hurst - Last Filed: 02/01/23 20:49> [facility] Narrative Medical decision making narrative: History gathered from: Patient and daughter Patient is in severe respiratory distress. His tracheostomy tube is on 10 L and is satting around 90%, HR 140, RR 32. Blood pressure stable. He has retractions and severely diminished lung sounds. I suspect COPD exacerbation and he was given aerosols, Solu-Medrol, and magnesium sulfate. ABG is consistent with hypercapnic respiratory acidosis at 7.292, CO2 81, PO2 60.5, bicarb 39.5. Labs show white count of 13.3, hemoglobin 14.1, and BMP remarkable for CROW at 1.67. CXR shows findings of COPD but no acute infiltrate. He developed a fever here of 101.9F and was treated with Tylenol. COVID/flu swabs are pending. Patient became hypotensive which could be secondary to magnesium. Fluids now running as a bolus. EKG is sinus tachycardia with ST depressions in V3 through V6. Cardiac enzymes and a CTA of the chest will be obtained to rule out ACS and PE. After attending had extensive discussion with the patient he is agreeable to be placed on a ventilator. Differential: COPD, PNA, viral URI Consults: Case discussed with pulmonology, hospitalist 45 minutes of critical care time was consumed by discussion with patient and family, discussion with multiple consultants, extensive treatment and planning. Lab Data Attestation: I reviewed the patient's lab results. Labs: Laboratory Results - last 24 hr 02/01/23 02/01/23 02/01/23 19:29 19:29 19:29 WBC 13.3 H RBC 4.70 Hgb 14.1 Hct 43.6 MCV 92.8 MCH 30.0 MCHC 32.3 RDW Std Deviation 42.4 RDW Coeff of Reynaldo 12.5 Plt Count 201 MPV 9.4 Immature Gran % (Auto) 0.400 Neut % (Auto) 77.5 H Lymph % (Auto) 5.8 L Patrick % (Auto) 16.1 H Eos % (Auto) 0.0 Baso % (Auto) 0.2 Absolute Neuts (auto) 10.3 H Absolute Lymphs (auto) 0.77 L Nucleated RBC % 0 Differential Comment SCANNED Diff Path Review May foll Sodium 134 L Potassium 4.6 Chloride 94 L Carbon Dioxide 33.0 H Anion Gap 7 BUN 29 H Creatinine 1.67 H Estim Creat Clear Calc 39.80 Est GFR (MDRD) Af Amer 53 L Est GFR (MDRD) Non-Af 44 L BUN/Creatinine Ratio 17.4 Glucose 113 H Lactic Acid Calcium 9.2 Alkaline Phosphatase Troponin I High Sens 39 02/01/23 02/01/23 19:29 21:30 WBC RBC Hgb Hct MCV MCH MCHC RDW Std Deviation RDW Coeff of Reynaldo Plt Count MPV Immature Gran % (Auto) Neut % (Auto) Lymph % (Auto) Patrick % (Auto) Eos % (Auto) Baso % (Auto) Absolute Neuts (auto) Absolute Lymphs (auto) Nucleated RBC % Differential Comment Diff Path Review Sodium Potassium Chloride Carbon Dioxide Anion Gap BUN Creatinine Estim Creat Clear Calc Est GFR (MDRD) Af Amer Est GFR (MDRD) Non-Af BUN/Creatinine Ratio Glucose Lactic Acid 0.8 Calcium Alkaline Phosphatase 45 Troponin I High Sens ABG Data ABG results: ABG 02/01/23 20:10 Specimen Type ART Sample Site L Radial pH 7.29 L Bicarbonate Actual 39.5 H Total CO2 42 Base Excess 13 H O2 Saturation 86 L O2 % 40 ABG pCO2 81.9 H* ABG pO2 61 L Hao Test Positive O2 Delivery Device Venti Mask Crit Call To/Read Back Yes Blood [facility] Diagnostic Testing: Clinical Impression(s) from Imaging Studies Chest X-Ray 02/01/23 19:42 IMPRESSION: There are findings consistent with COPD. There is no evidence of acute chest disease. Electronically Signed: Anuj Wells MD at 20:08 EDT , Chest CTA 02/01/23 20:42 IMPRESSION: Normal CTA chest examination, without a demonstrated pulmonary embolism or arterial dissection. COPD. Fibrotic changes. Probable scarring in the left apex and bilateral costophrenic angles cannot exclude active disease. Consider follow-up in 4-6 months. Electronically Signed: Anju Wells MD at 22:34 EDT , ED attending interpretation of 1 view chest x-ray shows normal heart size, no acute infiltrate. EKG Initial EKG: Attestation: I personally reviewed and interpreted this EKG as follows: Interpretation: Sinus Tachycardia Comments: ED attending interpretation sinus tachycardia with ST depressions V3 through V6, 128 bpm <Dr. Jane Osei, DO - Last Filed: 02/02/23 17:44> [facility] Narrative Medical decision making narrative: History gathered from: Patient and daughter Patient is in severe respiratory distress. His tracheostomy tube is on 10 L and is satting around 90%, HR 140, RR 32. Blood pressure stable. He has retractions and severely diminished lung sounds. I suspect COPD exacerbation and he was given aerosols, Solu-Medrol, and magnesium sulfate. ABG is consistent with hypercapnic respiratory acidosis at 7.292, CO2 81, PO2 60.5, bicarb 39.5. Labs show white count of 13.3, hemoglobin 14.1, and BMP remarkable for CROW at 1.67. CXR shows findings of COPD but no acute infiltrate. He developed a fever here of 101.9F and was treated with Tylenol. COVID/flu swabs are pending. Patient became hypotensive which could be secondary to magnesium. Fluids now running as a bolus. EKG is sinus tachycardia with ST depressions in V3 through V6. Cardiac enzymes and a CTA of the chest will be obtained to rule out ACS and PE. After attending had extensive discussion with the patient he is agreeable to be placed on a ventilator. Differential: COPD, PNA, viral URI Consults: Case discussed with pulmonology, hospitalist 45 minutes of critical care time was consumed by discussion with patient and family, discussion with multiple consultants, extensive treatment and planning. I have personally performed a face to face assessment of the patient and have reviewed the STACIA Note. I performed a substantive portion of the visit including all aspects of the following. My baum findings include: History is patient is a 67-year-old male with complex medical history including a COPD, total laryngectomy secondary to cancer with subsequent tracheostomy, pulmonary hypertension and anxiety/depression presenting for worsening shortness of breath. Daughter is at the bedside who provides the majority of history for the patient. Apparently about a month ago patient was admitted to [facility] for similar symptoms. He had a cardiac catheterization that was largely negative. He was treated for COPD exacerbation. He follows with [facility] pulmonology, JJ Mckeon. Patient had been discharged to [facility] which sounds like it was an acute rehab facility in [place]. He was discharged from there but has become more short of breath. Patient was brought to the emergency room today as he could not breathe. Upon arrival to the ER, Kerry EDGE, initially saw him and immediately requested that I see him as well. Patient appears to be in acute respiratory distress. Physical exam is highly consistent with a COPD exacerbation. Patient is given aerosols, Solu- Medrol and IV fluids. While normally I would put patient on BiPAP patient had a total laryngectomy so that would not help his breathing situation. 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 I spoke with Dr. Suazo, ICU/pulmonology on-call who had no further recommendations. Patient was given IV magnesium to help with his breathing. He subsequently did develop hypotension. Patient also spiked a fever in the emergency room. He is found to be COVID-positive with a mild leukocytosis. I suspect COVID-19 infection is the cause of his clinical presentation. Patient did have some response to aerosols but continues to be quite tachypneic and have diminished breath sounds. After multiple conversations with the patient and his daughter he eventually does agree to mechanical ventilation for pressure assistance. His laryngeal collar was exchanged for Shiley and this was hooked up to the vent with pressure assist mode 08/08. Patient tolerated this well and had significant improvement of his oxygenation and work of breathing. Patient be admitted to the ICU. Case is discussed admitting physician, Dr. Barry. Patient is given IV fluid boluses for his hypotension. He is asymptomatic for it at this time. He is also given aspirin for his fever. Other additions or changes: [None] History & Record Review Discussion w/independent historian: Family Lab Data Labs: Laboratory Results - last 24 hr 02/01/23 02/01/23 02/01/23 19:29 19:29 19:29 WBC 13.3 H RBC 4.70 Hgb 14.1 Hct 43.6 MCV 92.8 MCH 30.0 MCHC 32.3 RDW Std Deviation 42.4 RDW Coeff of Reynaldo 12.5 Plt Count 201 MPV 9.4 Immature Gran % (Auto) 0.400 Neut % (Auto) 77.5 H Lymph % (Auto) 5.8 L Patrick % (Auto) 16.1 H Eos % (Auto) 0.0 Baso % (Auto) 0.2 Absolute Neuts (auto) 10.3 H Absolute Lymphs (auto) 0.77 L Nucleated RBC % 0 Differential Comment SCANNED Diff Path Review May foll Sodium 134 L Potassium 4.6 Chloride 94 L Carbon Dioxide 33.0 H Anion Gap 7 BUN 29 H Creatinine 1.67 H Estim Creat Clear Calc 39.80 Est GFR (MDRD) Af Amer 53 L Est GFR (MDRD) Non-Af 44 L BUN/Creatinine Ratio 17.4 Glucose 113 H Lactic Acid Calcium 9.2 Alkaline Phosphatase Troponin I High Sens 39 02/01/23 02/01/23 19:29 21:30 WBC RBC Hgb Hct MCV MCH MCHC RDW Std Deviation RDW Coeff of Reynaldo Plt Count MPV Immature Gran % (Auto) Neut % (Auto) Lymph % (Auto) Patrick % (Auto) Eos % (Auto) Baso % (Auto) Absolute Neuts (auto) Absolute Lymphs (auto) Nucleated RBC % Differential Comment Diff Path Review Sodium Potassium Chloride Carbon Dioxide Anion Gap BUN Creatinine Estim Creat Clear Calc Est GFR (MDRD) Af Amer Est GFR (MDRD) Non-Af BUN/Creatinine Ratio Glucose Lactic Acid 0.8 Calcium Alkaline Phosphatase 45 Troponin I High Sens ABG Data ABG results: ABG 02/01/23 20:10 Specimen Type ART Sample Site L Radial pH 7.29 L Bicarbonate Actual 39.5 H Total CO2 42 Base Excess 13 H O2 Saturation 86 L O2 % 40 ABG pCO2 81.9 H* ABG pO2 61 L Hao Test Positive O2 Delivery Device Venti Mask Crit Call To/Read Back Yes Blood Gas Notified Whom [facility] Radiography Chest X-Ray - ED: 1 View, Read by ED Physician, Read by Radiologist and No Acute Disease Diagnostic Testing: Clinical Impression(s) from Imaging Studies Chest X-Ray 02/01/23 19:42 IMPRESSION: There are findings consistent with COPD. There is no evidence of acute chest disease. Electronically Signed: Anuj Wells MD at 20:08 EDT Reading Location ID and State: [employer] / [place] , Service support , Chest CTA 02/01/23 20:42 IMPRESSION: Normal CTA chest examination, without a demonstrated pulmonary embolism or arterial dissection. COPD. Fibrotic changes. Probable scarring in the left apex and bilateral costophrenic angles cannot exclude active disease. Consider follow-up in 4-6 months. Electronically Signed: Anuj Wells MD at 22:34 EDT , Discharge Plan Dx/Rx/DC Orders Clinical Impression: Acute exacerbation of chronic obstructive pulmonary disease, Acute hypercapnic respiratory failure, Acute kidney injury Disposition Disposition: Acute Care Hospital [facility] Discharge Date/Time: 02/01/23 23:42
--- NOTE | 2023-02-01 19:36 | EKG12_ITS ---
Test Reason : DYSRHYTHMIA Blood Pressure : / mmHG Vent. Rate : 128 BPM Atrial Rate : 128 BPM P-R Int : 114 ms QRS Dur : 094 ms QT Int : 310 ms P-R-T Axes : 084 095 087 degrees QTc Int : 452 ms Sinus tachycardia Nonspecific ST and T wave abnormality Abnormal ECG Confirmed by KIP SOLIS, BHAVIN ([id number]), newspaper managing editor KAYLIE BUNN ([id number]) on 02/04/2023 8:40:00 AM Referred By: THUAN Confirmed By:BHAVIN SHIN MD
--- NOTE | 2023-02-01 19:42 | RAD_ITS ---
STUDY: X-RAY CHEST REASON FOR EXAM: Male, 67 years old. dyspnea TECHNIQUE: Single AP portable view of the chest. COMPARISON: 10/14/2019. FINDINGS: There is hyperinflation of the lungs consistent with chronic obstructive lung disease (COPD). No infiltrates or effusions are seen. There is no demonstrated pleural abnormality. Normal size heart. Normal mediastinum and johana. There is prominence of the pulmonary hilar arteries without peripheral pulmonary vascular congestion, suggesting pulmonary hypertension. Normal visualized aortic arch and descending thoracic aorta. Normal visualized thoracic spine. Normal visualized ribs, clavicles, and shoulders. There is no demonstrated abnormality of the visualized soft tissue structures of the upper abdomen. RAD/Chest 1 View (Portable) IMPRESSION: There are findings consistent with COPD. There is no evidence of acute chest disease. Electronically Signed: Anuj Wells MD at 20:08 EDT ,
[2023-02-01] MEDS: Albuterol 2.5 MG/3 ML VIAL.NEB. INHALATION (19:46)
[2023-02-01 19:50] LABS: Absolute Lymphocyte Count 0.77 X10^3/uL (0.83-4.51); Absolute Neutrophil Count 10.3 X10^3/uL (2.0-7.7); Basophil# 0.03 X10^3/uL; Basophil% 0.2 % (0-1); Hematocrit 43.6 % (40-54); Hemoglobin 14.1 g/dL (13.0-16.5); Lymphocyte # 0.77 X10^3/ul (0.83-4.51); Lymphocyte % 5.8 % (19-41); Mean Corp Hgb Conc 32.3 g/dL (32-36); Mean Corpuscular Volume 92.8 fL (80-94); Mean Platelet Vol. 9.4 fl (6.2-12.0); Monocyte# 2.14 X10^3/uL; Monocyte% 16.1 % (0-10); NRBC Flagged by Analyzer 0 % (0-5); Neutrophil # 10.27 X10^3/uL (2.7-7.7); Neutrophil % 77.5 % (47-70); POSITIVE DIFFERENTIAL YES; Platelet Count 201 K/mm3 (150-450); RBC Distribution Width CV 12.5 % (11.6-14.6); RBC Distribution Width SD 42.4 fl (35.1-43.9); White Blood Count 13.3 K/mm3 (4.4-11.0)
[2023-02-01 19:53] LABS: Differential Indicated SCAN CRITERIA MET
--- NOTE | 2023-02-01 20:03 | ED.RN ---
called pharmacy to inquire about magnesium
[2023-02-01 20:07] LABS: Anion Gap 7 (5-15); BUN 29 mg/dL (7-18); BUN/Creat Ratio 17.4 RATIO (10-20); Calcium,Total 9.2 mg/dL (8.5-10.1); Chloride 94 mmol/L (98-107); Creatinine, Serum 1.67 mg/dL (0.70-1.30); EST Glomerular Filtration Rate 44 mL/min (>60); Est Glom Filt Rate - Afr Amer 53 mL/min (>60); Glucose 113 mg/dL (74-106); Potassium 4.6 mmol/L (3.5-5.1); Sodium Level 134 mmol/L (136-145)
[2023-02-01 20:15] LABS: Allen Test Positive; Base Excess 13 mmol/L (-2 to +2); Bicarbonate 39.5 mmol/L (22-26); Blood Gas Specimen Type ART; FI02 40; O2 Delivery Device Venti Mask; PO2 61 mmHG (75-100); SITE L Radial; SO2 86 % (95-99); Total Carbon Dioxide 42 mmol/L; pCO2 81.9 mmHg (35-45); pH 7.29 (7.35-7.45)
[2023-02-01] MEDS: Acetaminophen 325 MG Tablet 650 MG PO (20:15)
[2023-02-01 20:27] LABS: Differential Comment SCANNED
[2023-02-01] MEDS: 0.9% Normal Saline 1,000 ML 150 ML IV (20:33)
--- NOTE | 2023-02-01 20:38 | CPS ---
x1 Albuterol given to pt. in ER as well
--- NOTE | 2023-02-01 20:42 | CT_ITS ---
STUDY: CTA CHEST REASON FOR EXAM: Male, 67 years old. hypoxia, dyspnea RADIATION DOSAGE (If Supplied By Facility): CTDIvol = ( 12.00 ) mGy, DLP = ( 353.57 ) mGycm TECHNIQUE: The examination was performed with the intravenous administration of IV 100mL [id number]-370. Post-processing of the angiographic images was performed, with multiplanar reformation and 3D reconstruction. Individualized dose optimization techniques were used for this CT. COMPARISON: None. FINDINGS: Normal enhancement of the main pulmonary artery and right and left pulmonary arteries. Normal enhancement of the bilateral peripheral pulmonary arteries. There is no demonstrated pulmonary embolism. There is prominence of the main pulmonary arteries without peripheral pulmonary vascular congestion, suggesting pulmonary hypertension. Normal thoracic aorta and visualized great vessels. There is no demonstrated aortic dissection. Normal heart and pericardium. Normal mediastinum. Normal hilar regions. Satisfactory positioning of tracheostomy tube, with unremarkable visualized trachea and bronchi. The lungs are hyper expanded, with flattening of the hemidiaphragms. Evidence for centrilobular emphysema. Irregular discoid shaped focal pulmonary opacity in left apex, approximately 3 cm size most consistent with scarring. However active neoplasm cannot be excluded. Likewise, probable fibrotic changes and/or subsegmental atelectasis in the costophrenic angles, but active disease cannot be excluded. No definite inflammatory infiltrates. No effusions. Normal osseous structures. Normal visualized upper abdomen. CT/CTA Chest W/WO Contrast IMPRESSION: Normal CTA chest examination, without a demonstrated pulmonary embolism or arterial dissection. COPD. Fibrotic changes. Probable scarring in the left apex and bilateral costophrenic angles cannot exclude active disease. Consider follow-up in 4-6 months. Electronically Signed: Anuj Wells MD at 22:34 EDT ,
[2023-02-01] MEDS: 0.9% Normal Saline 1,000 ML 999 ML IV (20:58)
[2023-02-01 21:26] LABS: Troponin-I HS 39 pg/mL (3.0-78.0)
--- NOTE | 2023-02-01 22:11 | ED.RN ---
called report to Hanane in ICU
[2023-02-01 22:18] LABS: Lactic Acid 0.8 mmol/L (0.4-1.9)
--- NOTE | 2023-02-01 23:14 | HP.PCM.HOS_ITS ---
HPI - General General Date of Admission: 02/01/23 Date of Service: 02/01/23 Chief Complaint: shortness of breath. HPI Narrative ANDRES TORRES, is a 67 M who presents with shortness of breath. Patient had been hospitalized recently at [facility] for COPD exacerbation. He then went to rehab and [facility]. While he was there, he had a roommate that had positive COVID. He was discharged yesterday patient's daughter took him home. Previously at home, patient was on 2 L via trach mask but when he was discharged this most recent time he was on 6 L via trach mask. But while at home, he was starting to get more short of breath and today patient was very labored and sent to the emergency room. Patient has history of esophageal cancer status post laryngectomy and tracheostomy. In emergency room, they placed a Shiley trach and put the patient on the ventilator. While he was there he received methylprednisolone, bronchodilators and magnesium. Shortly after magnesium infusion. It did improve afterwards. Patient on my evaluation is on the mechanical ventilator through tracheostomy and is in no respiratory distress and appears very comfortable. Patient did test positive for COVID-19. [facility] Medical History (Updated 02/01/23 @ 23:[address] 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 Emphysema lung GERD without esophagitis History of colon polyps History of lung cancer History of pulmonary hypertension Hypothyroidism Localized cancer of lip, oral cavity and throat Marijuana abuse Home Medications budesonide 0.5 mg/2 mL suspension for nebulization (Pulmicort) 2 ml inhalation Q12H 12/29/17 [History Last Taken 01/31/20 05:00 2 ML] ipratropium 0.5 mg-albuterol 3 mg (2.5 mg base)/3 mL nebulization soln 3 ml inhalation Q6H 10/06/19 [History Last Taken 01/31/20 05:00 3 ML] levothyroxine 100 mcg tablet 100 mcg PO DAILY 01/25/20 [History Last Taken 01/31/20 05:00 100 MCG] oxygen-air delivery systems ##1 01/25/20 [History Last Taken Unknown] guaifenesin 1,200 mg tablet, extended release 12 hr 600 mg PO BID 01/27/20 [History Last Taken Unknown] arformoterol 15 mcg/2 mL solution for nebulization 2 ml inhalation BID 02/01/23 [History Last Taken Unknown] aspirin 81 mg capsule 81 mg PO DAILY 02/01/23 [History Last Taken Unknown] metoprolol tartrate 25 mg tablet 25 mg PO BID 02/01/23 [History Last Taken Unknown] nitroglycerin 0.4 mg sublingual tablet 0.4 mg sublingual Q5M PRN Chest Pain 02/01/23 [History Last Taken Unknown] prednisone 10 mg tablet 10 mg PO DAILY 02/01/23 [History Last Taken Unknown] roflumilast 500 mcg tablet 500 mcg PO DAILY 02/01/23 [History Last Taken Unknown] Allergy/AdvReac Type Severity Reaction Status Date / Time hydromorphone HCl AdvReac blood Verified 02/01/23 19:22 [From Dilaudid] pressure fluctuations/severe sweating Family History Father Heart disease Skin cancer Mother Diabetes Alzheimer's dementia Sister COPD (chronic obstructive pulmonary disease) Grandfather Colon cancer Surgical History History of carpal tunnel surgery of right wrist History of colonoscopy (~12/27/15) History of esophagogastroduodenoscopy (EGD) (~06/08/15) History of laryngectomy History of tracheostomy S/P colonoscopy (~12/2017) Social History Smoking Status: Former smoker how long ago did patient quit smokin years ago alcohol intake: current alcohol intake frequency: a few times a week substance use type: former substance user and marijuana caffeine: Yes Type: coffee ROS ROS Narrative No chest pain. All review of systems were negative except as mentioned above in the history of present illness and the other review of systems. Vital Signs Vital Signs Vital Signs: 02/01/23 19:22 02/01/23 19:25 02/01/23 19:26 Temperature 37.7 C H Temperature Source Temporal Pulse Rate 152 H 144 H Respiratory Rate 28 H 30 H Respiratory Effort Short of Breath Labored Accessory Muscle Use Respiratory Pattern Blood Pressure 178/101 H Blood Pressure Mean 126 Pulse Ox 82 90 Oxygen Delivery Method Trach Collar Trach Collar Oxygen Flow Rate (L/min) 10 10 02/01/23 19:35 02/01/23 19:59 02/01/23 20:37 Temperature 38.8 C H 37.7 C H Temperature Source Temporal Temporal Pulse Rate 140 H 155 H 127 H Respiratory Rate 32 H 38 H 24 H Respiratory Effort Respiratory Pattern Blood Pressure 158/90 H 181/118 H 72/44 L Blood Pressure Mean 112 139 53 Pulse Ox 95 92 90 Oxygen Delivery Method Trach Collar Trach Collar Trach Collar Oxygen Flow Rate (L/min) 10 10 10 02/01/23 19:33 02/01/23 21:02 02/01/23 21:49 Temperature 36.9 C 37.0 C Temperature Source Temporal Temporal Pulse Rate 153 H 110 H 109 H Respiratory Rate 32 H 18 20 H Respiratory Effort Respiratory Pattern Tachypnea Blood Pressure 70/45 L 97/75 Blood Pressure Mean 53 82 Pulse Ox 95 97 Oxygen Delivery Method Mechanical Ventilator Mechanical Ventilator Oxygen Flow Rate (L/min) 02/01/23 22:05 02/01/23 21:00 02/01/23 22:48 Temperature 37.0 C Temperature Source Temporal Pulse Rate 104 H 115 H 99 Respiratory Rate 20 H 23 H 27 H Respiratory Effort Respiratory Pattern Tachypnea Tachypnea Blood Pressure 82/58 L Blood Pressure Mean 66 Pulse Ox 98 98 94 Oxygen Delivery Method Mechanical Ventilator Oxygen Flow Rate (L/min) 02/01/23 23:10 Temperature 37.0 C Temperature Source Temporal Pulse Rate 94 Respiratory Rate 19 H Respiratory Effort Respiratory Pattern Blood Pressure 96/74 Blood Pressure Mean 81 Pulse Ox 94 Oxygen Delivery Method Mechanical Ventilator Oxygen Flow Rate (L/min) Weight Weight: 74.9 kg Body Mass Index (BMI) 26.6 Physical Exam Const alert and no apparent distress Constitutional Narrative: On mechanical ventilator through his tracheostomy. No respiratory distress General Appearance: cooperative HEENT normocephalic and head/scalp atraumatic Eyes Eyes Narrative: No icterus Neck no lymphadenopathy, supple and no JVD Neck Narrative: Tracheostomy in place. Stoma without any erythema or discharge. Resp normal respiratory effort and no retractions Resp Narrative: Diminished breath sounds bilaterally Cardio regular rate, regular rhythm, S1 normal heart sound and S2 normal heart sound GI normal to inspection, nondistended, normoactive bowel sounds, soft to palpation, non-tender and non-distended Extremity normal to inspection and full ROM Neuro moves all extremities Sensorium / Orientation: awake and alert Psych affect normal Results Lab / Micro Data Attestation: I reviewed the patient's lab results. Lab results narrative: CTA reviewed and shows COPD and chronic scarring. No infiltrate noted. Result Diagrams: 02/01/23 19:29 02/01/23 19:29 Labs: Laboratory Results - last 24 hr 02/01/23 19:29: WBC 13.3 H, RBC 4.70, Hgb 14.1, Hct 43.6, MCV 92.8, MCH 30.0, MCHC 32.3, RDW Std Deviation 42.4, RDW Coeff of Reynaldo 12.5, Plt Count 201, MPV 9.4, Immature Gran % (Auto) 0.400, Neut % (Auto) 77.5 H, Lymph % (Auto) 5.8 L, [place] % (Auto) 16.1 H, Eos % (Auto) 0.0, Baso % (Auto) 0.2, Absolute Neuts (auto) 10.3 H, Absolute Lymphs (auto) 0.77 L, Nucleated RBC % 0, Differential Comment SCANNED, Diff Path Review May foll 02/01/23 19:29: Sodium 134 L, Potassium 4.6, Chloride 94 L, Carbon Dioxide 33.0 H, Anion Gap 7, BUN 29 H, Creatinine 1.67 H, Estim Creat Clear Calc 39.80, Est GFR (MDRD) Af Amer 53 L, Est GFR (MDRD) Non-Af 44 L, BUN/Creatinine Ratio 17.4, Glucose 113 H, Calcium 9.2 02/01/23 19:29: Troponin I High Sens 39 02/01/23 21:30: Lactic Acid 0.8 Micro: Microbiology 02/01/23 20:30 Nasal Secretion SARS-CoV-2 & FLU Antigen (Rapid) - Final SARS-CoV-2 (COVID 19) ABG Data ABG results: ABG 02/01/23 20:10 Specimen Type ART Sample Site L Radial pH 7.29 L Bicarbonate Actual 39.5 H Total CO2 42 Base Excess 13 H O2 Saturation 86 L O2 % 40 ABG pCO2 81.9 H* ABG pO2 61 L Hao Test Positive O2 Delivery Device Venti Mask Crit Call To/Read Back Yes Blood Gas Notified Whom [facility] EKG Initial EKG: EKG Rhythm Intrepretation: Sinus Tachycardia Radiology Impression Chest X-Ray 02/01/23 19:42 IMPRESSION: There are findings consistent with COPD. There is no evidence of acute chest disease. Electronically Signed: Anuj Wells MD at 20:08 EDT , Chest CTA 02/01/23 20:42 IMPRESSION: Normal CTA chest examination, without a demonstrated pulmonary embolism or arterial dissection. COPD. Fibrotic changes. Probable scarring in the left apex and bilateral costophrenic angles cannot exclude active disease. Consider follow-up in 4-6 months. Electronically Signed: Anuj Wells MD at 22:34 EDT , Assessment & Plan Assessment/Plan (1) Acute hypercapnic respiratory failure: PLAN: Secondary to COPD exacerbation which is likely exacerbated due to COVID-19 Patient had tracheostomy placed and had his other device removed. Patient was placed on the ventilator and received medications including methylprednisolone and bronchodilators. Much improved at this time. Consult pulmonary medicine for ventilator management. (2) Acute exacerbation of chronic obstructive pulmonary disease: PLAN: Methylprednisolone and bronchodilators. Exacerbated due to COVID-19 (3) COVID-19: PLAN: We will start the patient on remdesivir. Onset was likely January 31 According patient's daughter he may have contracted this from a roommate that he had in rehab. (4) Acute kidney injury: PLAN: Versus chronic kidney disease Last creatinine we have in our system is from 2020 0.9 at that time. Today is 1.67. Patient currently receiving IV fluids. Monitor. PLAN: Plan Chronic conditions * History of esophageal cancer : Status post tracheostomy and laryngectomy. Normal as a marilou tube. This was removed and Nena put in its place. Pt has a voice valve that is to be replaced by speech therapy in the coming weeks. * Pulmonary hypertension * Anxiety depression * BPH * GERD * Hypothyroidism VTE prophylaxis: Low molecular rate heparin Advance care planning: Spent additional 20 minutes discussing with the patient and his daughter at bedside about advanced directives. Discussed CPR with him. Patient wishes to be DNR Comfort Care arrest. Patient and his daughter advised that they can change her mind anytime. Charges/Coding Visit Charges Inpatient E&M: 92247 Init Hosp L3 Procedures Hospitalists Procedures: 77958 Critial Care Addl 30 Min
[2023-02-02] VITALS (34 sets, daily range): BP systolic 63–159; BP diastolic 34–105; PULSE 66–117; RESP 14–26; TEMP 36.1–36.8; O2SAT 75–99; BMI 26.8
[2023-02-02 00:04] LABS: Alkaline Phosphatase 45 U/L (45-117)
[2023-02-02] MEDS: 0.9% Normal Saline 1,000 ML 150 ML IV ×3 (00:12→13:07)
[2023-02-02] MEDS: Albuterol 2.5 MG/3 ML VIAL.NEB. INHALATION ×2 (00:33→04:13)
[2023-02-02] MEDS: 0.9% Normal Saline 1,000 ML 999 ML IV (00:55)
[2023-02-02 01:10] LABS: Allen Test Positive; Base Excess 4 mmol/L (-2 to +2); Bicarbonate 30.2 mmol/L (22-26); Blood Gas Specimen Type ART; FI02 40; Mode CPAP/PS; O2 Delivery Device Adult Vent; PEEP 8; PO2 92 mmHG (75-100); PS 5; SITE R Brach; SO2 96 % (95-99); Total Carbon Dioxide 32 mmol/L; pCO2 64.4 mmHg (35-45); pH 7.28 (7.35-7.45)
[2023-02-02 03:34] LABS: Absolute Lymphocyte Count 0.14 X10^3/uL (0.83-4.51); Absolute Neutrophil Count 5.1 X10^3/uL (2.0-7.7); Basophil# 0.01 X10^3/uL; Basophil% 0.2 % (0-1); Hematocrit 35.7 % (40-54); Hemoglobin 11.2 g/dL (13.0-16.5); Lymphocyte # 0.14 X10^3/ul (0.83-4.51); Lymphocyte % 2.6 % (19-41); Mean Corp Hgb Conc 31.4 g/dL (32-36); Mean Corpuscular Volume 95.7 fL (80-94); Mean Platelet Vol. 9.5 fl (6.2-12.0); Monocyte# 0.16 X10^3/uL; NRBC Flagged by Analyzer 0 % (0-5); Neutrophil # 5.08 X10^3/uL (2.7-7.7); Neutrophil % 93.8 % (47-70); POSITIVE DIFFERENTIAL YES; Platelet Count 127 K/mm3 (150-450); RBC Distribution Width CV 12.6 % (11.6-14.6); RBC Distribution Width SD 44.2 fl (35.1-43.9); Red Blood Count 3.73 M/mm3 (4.6-6.2); White Blood Count 5.4 K/mm3 (4.4-11.0)
[2023-02-02 03:35] LABS: Differential Indicated SCAN CRITERIA MET
[2023-02-02 03:47] LABS: Differential Comment SCANNED
[2023-02-02 04:20] LABS: ALB/GLOB Ratio 0.9 RATIO (0.9-2.4); AST(SGOT) 38 U/L (15-37); Alanine Aminotransfer ALT/SGPT 50 U/L (16-61); Albumin, Serum 2.6 g/dL (3.2-5.0); Alkaline Phosphatase 33 U/L (45-117); Anion Gap 4 (5-15); BUN 29 mg/dL (7-18); Calcium,Total 7.4 mg/dL (8.5-10.1); Chloride 105 mmol/L (98-107); Creatinine, Serum 1.26 mg/dL (0.70-1.30); EST Glomerular Filtration Rate 61 mL/min (>60); Est Glom Filt Rate - Afr Amer 74 mL/min (>60); Estimated Creatinine Clearance 52.74 ml/min; Globulin 2.9 g/dL (2.2-4.2); Glucose 126 mg/dL (74-106); Potassium 4.2 mmol/L (3.5-5.1); Protein, Total 5.5 g/dL (6.4-8.2); Sodium Level 138 mmol/L (136-145)
--- NOTE | 2023-02-02 05:45 | CON.PCM.CC_ITS ---
Assessment & Plan Assessment/Plan (1) Acute exacerbation of chronic obstructive pulmonary disease: PLAN: Plan RECOMMENDATIONS: 1. Continue pressure support mode of ventilation and transition to trach collar O2 when feasible. 2. Continue gentle IV fluid hydration. 3. Continue scheduled bronchodilators and steroids. 4. Continue remdesivir as ordered. 5. Hold antihypertensives for now. 6. Continue appropriate DVT prophylaxis. IMPRESSIONS: 1. Acute on chronic hypoxemic and hypercapnic respiratory failure secondary to COVID-19 The patient has a known history of severe obstructive lung disease with frequent exacerbations along with chronic hypoxemic respiratory failure, with a baseline oxygen requirement of 2 to 3 L/min. He does have a history of esophageal cancer and is status post laryngectomy. He received his pulmonary care through a provider at [facility]. I do suspect that his current COPD exacerbation is secondary t o COVID-19. The patient will be continued on pressure support mode of ventilation as tolerated. Given overall improvement noted this morning and his respiratory status, he can likely be given a break and transition to trach collar supplemental O2. In the interim, he will be continued on scheduled bronchodilators, steroids and remdesivir. 2. Acute kidney injury Likely prerenal in etiology. The patient's renal function improved with volume expansion. Continue to monitor urine output for now. No indication for renal replacement therapy. 3. History of esophageal cancer status post laryngectomy/anxiety/depression/pulmonary hypertension/GERD/hypothyroidism Complicates care, management, recovery and prognosis. Continue home medications as indicated. This note was generated with [employer] dictation software. It may contain incorrect words, spelling, and punctuation that were not noted in checking the note before signing. HPI Consult Data Date of Consult: 02/02/23 HPI Narrative Reason for Consultation: Respiratory failure HPI Narrative: The patient is a 67-year-old male, with a history as outlined below, who presented to the emergency department on February 01 with worsening shortness of breath. The patient has a medical history significant for severe obstructive lung disease, esophageal cancer status post laryngectomy and chronic hypoxemic respiratory failure, with a baseline oxygen requirement of 2 to 3 L/min. The patient was recently hospitalized at [facility] for a presumptive COPD exacerbation. He went to a rehab facility in [place]. He was apparently discharged home on January 31, but had to increase his supplemental oxygen flow rate to 6 L/min. The patient was apparently exposed to COVID-19 through his roommate while at the rehab facility. The patient is currently followed by a pulmonary provider through [facility]. On presentation to the emergency department, the patient was noted to have a low-grade fever and was notably tachycardic and tachypneic. Initial laboratory evaluation revealed a white blood cell count of 13,000. His initial arterial blood gas demonstrated a pH of 7.29 with a PCO2 of 82 and PO2 of 61. Chemistry profile was notable for a bicarbonate of 33 and creatinine of 1.67. Lactate was within normal limits. CTA chest showed no evidence for pulmonary embolism. Hyperinflated lung estes were noted along with centrilobular emphysema. Chronic fibrotic changes were noted without any acute infiltrative process. Ultimately, due to the patient's respiratory distress, a Shiley trach was placed in the patient's stoma to provide ventilatory support. COVID PCR was positive. The patient was subsequently placed on remdesivir and corticosteroids. He was admitted to the medical intensive care unit for further management. Overnight, the patient responded appropriately to pressure support ventilation. He is alert and appropriately interactive this morning. He did have some borderline blood pressures overnight, which responded to supplemental IV fluids. [facility] Medical History (Updated 02/01/23 @ 23:[address] 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 Emphysema lung GERD without esophagitis History of colon polyps History of lung cancer History of pulmonary hypertension Hypothyroidism Localized cancer of lip, oral cavity and throat Marijuana abuse Home Medications budesonide 0.5 mg/2 mL suspension for nebulization (Pulmicort) 2 ml inhalation Q12H 12/29/17 [History Last Taken 01/31/20 05:00 2 ML] ipratropium 0.5 mg-albuterol 3 mg (2.5 mg base)/3 mL nebulization soln 3 ml inhalation Q6H 10/06/19 [History Last Taken 01/31/20 05:00 3 ML] levothyroxine 100 mcg tablet 100 mcg PO DAILY 01/25/20 [History Last Taken 01/31/20 05:00 100 MCG] oxygen-air delivery systems ##1 01/25/20 [History Last Taken Unknown] guaifenesin 1,200 mg tablet, extended release 12 hr 600 mg PO BID 01/27/20 [History Last Taken Unknown] arformoterol 15 mcg/2 mL solution for nebulization 2 ml inhalation BID 02/01/23 [History Last Taken Unknown] aspirin 81 mg capsule 81 mg PO DAILY 02/01/23 [History Last Taken Unknown] metoprolol tartrate 25 mg tablet 25 mg PO BID 02/01/23 [History Last Taken Unknown] nitroglycerin 0.4 mg sublingual tablet 0.4 mg sublingual Q5M PRN Chest Pain 0 02/01/23 [History Last Taken Unknown] prednisone 10 mg tablet 10 mg PO DAILY 02/01/23 [History Last Taken Unknown] roflumilast 500 mcg tablet 500 mcg PO DAILY 02/01/23 [History Last Taken Unknown] Allergy/AdvReac Type Severity Reaction Status Date / Time hydromorphone HCl AdvReac blood Verified 02/01/23 19:22 [From Dilaudid] pressure fluctuations/severe sweating Family History Father Heart disease Skin cancer Mother Diabetes Alzheimer's dementia Sister COPD (chronic obstructive pulmonary disease) Grandfather Colon cancer Surgical History History of carpal tunnel surgery of right wrist History of colonoscopy (~12/27/15) History of esophagogastroduodenoscopy (EGD) (~06/08/15) History of laryngectomy History of tracheostomy S/P colonoscopy (~12/2017) Social History Smoking Status: Former smoker how long ago did patient quit smokin years ago alcohol intake: current alcohol intake frequency: a few times a week substance use type: former substance user and marijuana caffeine: Yes Type: coffee ROS ROS Narrative 10 systems were reviewed with pertinent positives as noted in the HPI above. Physical Exam Const alert and no apparent distress General Appearance: cooperative HEENT normocephalic and head/scalp atraumatic Eyes PERRL, EOMs intact bilaterally and conjunctivae normal Neck supple Neck Narrative: Shiley trach in place. Stoma is patent without any surrounding erythema. Chest inspection of chest normal Resp normal respiratory effort Auscultation: diminished lung sounds; Negative for rales, rhonchi or wheezes Cardio regular rate and regular rhythm GI normal to inspection, nondistended, normoactive bowel sounds Extremity no clubbing, cyanosis or edema Skin no rashes or lesions noted Neuro CN's II-XII intact bilaterally and no focal motor deficits Psych cooperative and affect normal Lab / Micro Data Result Diagrams: 02/02/23 03:10 02/02/23 03:10 Labs: Laboratory Results - last 24 hr 02/01/23 19:29: WBC 13.3 H, RBC 4.70, Hgb 14.1, Hct 43.6, MCV 92.8, MCH 30.0, MCHC 32.3, RDW Std Deviation 42.4, RDW Coeff of Reynaldo 12.5, Plt Count 201, MPV 9.4, Immature Gran % (Auto) 0.400, Neut % (Auto) 77.5 H, Lymph % (Auto) 5.8 L, [place] % (Auto) 16.1 H, Eos % (Auto) 0.0, Baso % (Auto) 0.2, Absolute Neuts (auto) 10.3 H, Absolute Lymphs (auto) 0.77 L, Nucleated RBC % 0, Differential Comment SCANNED, Diff Path Review December02/01/23 19:29: Sodium 134 L, Potassium 4.6, Chloride 94 L, Carbon Dioxide 33.0 H, Anion Gap 7, BUN 29 H, Creatinine 1.67 H, Estim Creat Clear Calc 39.80, Est GFR (MDRD) Af Amer 53 L, Est GFR (MDRD) Non-Af 44 L, BUN/Creatinine Ratio 17.4, Glucose 113 H, Calcium 9.2 02/01/23 19:29: Troponin I High Sens 39 02/01/23 19:29: Alkaline Phosphatase 45 02/01/23 21:30: Lactic Acid 0.8 02/02/23 03:10: WBC 5.4, RBC 3.73 L, Hgb 11.2 L, Hct 35.7 L, MCV 95.7 H, MCH 30.0, MCHC 31.4 L, RDW Std Deviation 44.2 H, RDW Coeff of Reynaldo 12.6, Plt Count 127 L, MPV 9.5, Immature Gran % (Auto) 0.400, Neut % (Auto) 93.8 H, Lymph % (Auto) 2.6 L, [place] % (Auto) 3.0, Eos % (Auto) 0.0, Baso % (Auto) 0.2, Absolute Neuts (auto) 5.1, Absolute Lymphs (auto) 0.14 L, Nucleated RBC % 0, Differential Comment SCANNED 02/02/23 03:10: Sodium 138, Potassium 4.2, Chloride 105, Carbon Dioxide 29.0, Anion Gap 4 L, BUN 29 H, Creatinine 1.26, Estim Creat Clear Calc 52.74, Est GFR (MDRD) Af Amer 74, Est GFR (MDRD) Non-Af 61, BUN/Creatinine Ratio 23.0 H, Glucose 126 H, Calcium 7.4 L, Total Bilirubin 0.40, AST 38 H, ALT 50, Alkaline Phosphatase 33 L, Total Protein 5.5 L, Albumin 2.6 L, Globulin 2.9, Albumin/Globulin Ratio 0.9 Micro: Microbiology 02/01/23 20:30 Nasal Secretion SARS-CoV-2 & FLU Antigen (Rapid) - Final SARS-CoV-2 (COVID 19) ABG Data ABG results: ABG 02/01/23 02/02/23 20:10 01:05 Specimen Type ART ART Sample Site L Radial R Brach pH 7.29 L 7.28 L Bicarbonate Actual 39.5 H 30.2 H Total CO2 42 32 Base Excess 13 H 4 H O2 Saturation 86 L 96 O2 % 40 40 ABG pCO2 81.9 H* 64.4 H ABG pO2 61 L 92 Hao Test Positive Positive O2 Delivery Device Venti Mask Adult Vent Vent Mode CPAP/PS POC PEEP 8 POC Pressure Suppt 5 Crit Call To/Read Back Yes Blood Gas Notified Whom [facility] Radiology Impression Chest X-Ray 02/01/23 19:42 IMPRESSION: There are findings consistent with COPD. There is no evidence of acute chest disease. Electronically Signed: Anuj Wells MD at 20:08 EDT , Chest CTA 02/01/23 20:42 IMPRESSION: Normal CTA chest examination, without a demonstrated pulmonary embolism or arterial dissection. COPD. Fibrotic changes. Probable scarring in the left apex and bilateral costophrenic angles cannot exclude active disease. Consider follow-up in 4-6 months. Electronically Signed: Anuj Wells MD at 22:34 EDT , Charges/Coding Visit Charges Inpatient E&M: 45160 Init Hosp L3
[2023-02-02] MEDS: Ipratropium/Albuterol Sulfate 3 ML AMPUL.NEB INHALATION ×5 (06:36→22:49)
--- NOTE | 2023-02-02 07:16 | PCM.PN.HOSP ---
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 with recent revision of his tracheostomy at [facility] who presented with shortness of breath Objective Data Objective Data Vital Signs: Vital Signs Temp Pulse Resp BP Pulse Ox O2 Del Method O2 Flow Rate 97.8 F 74 19 H 82/53 L 97 Mechanical Ventilator 10 02/02/23 03:00 02/02/23 07:00 02/02/23 07:00 02/02/23 07:00 02/02/23 07:00 02/02/23 07:00 02/01/23 20:37 FiO2 40 02/02/23 07:00 Oxygen Flow Rate (L/min) 10 Oxygen Delivery Method Mechanical Ventilator Weight: 75.6 kg Body Mass Index (BMI) 26.8 Intake & Output: Intake and Output for Last 24 Hours 01/31/23 02/01/23 02/02/23 23:59 23:59 23:59 Intake Total 2104 / 2104 2430 / 2430 Output Total 600 / 600 Balance 2104 / 2104 1830 / 1830 Lab / Micro Data Result Diagrams: 02/02/23 03:10 02/02/23 03:10 Labs: Laboratory Results - last 24 hr 02/01/23 19:29: WBC 13.3 H, RBC 4.70, Hgb 14.1, Hct 43.6, MCV 92.8, MCH 30.0, MCHC 32.3, RDW Std Deviation 42.4, RDW Coeff of Reynaldo 12.5, Plt Count 201, MPV 9.4, Immature Gran % (Auto) 0.400, Neut % (Auto) 77.5 H, Lymph % (Auto) 5.8 L, [place] % (Auto) 16.1 H, Eos % (Auto) 0.0, Baso % (Auto) 0.2, Absolute Neuts (auto) 10.3 H, Absolute Lymphs (auto) 0.77 L, Nucleated RBC % 0, Differential Comment SCANNED, Diff Path Review December02/01/23 19:29: Sodium 134 L, Potassium 4.6, Chloride 94 L, Carbon Dioxide 33.0 H, Anion Gap 7, BUN 29 H, Creatinine 1.67 H, Estim Creat Clear Calc 39.80, Est GFR (MDRD) Af Amer 53 L, Est GFR (MDRD) Non-Af 44 L, BUN/Creatinine Ratio 17.4, Glucose 113 H, Calcium 9.2 02/01/23 19:29: Troponin I High Sens 39 02/01/23 19:29: Alkaline Phosphatase 45 02/01/23 21:30: Lactic Acid 0.8 02/02/23 03:10: WBC 5.4, RBC 3.73 L, Hgb 11.2 L, Hct 35.7 L, MCV 95.7 H, MCH 30.0, MCHC 31.4 L, RDW Std Deviation 44.2 H, RDW Coeff of Reynaldo 12.6, Plt Count 127 L, MPV 9.5, Immature Gran % (Auto) 0.400, Neut % (Auto) 93.8 H, Lymph % (Auto) 2.6 L, [place] % (Auto) 3.0, Eos % (Auto) 0.0, Baso % (Auto) 0.2, Absolute Neuts (auto) 5.1, Absolute Lymphs (auto) 0.14 L, Nucleated RBC % 0, Differential Comment SCANNED 02/02/23 03:10: Sodium 138, Potassium 4.2, Chloride 105, Carbon Dioxide 29.0, Anion Gap 4 L, BUN 29 H, Creatinine 1.26, Estim Creat Clear Calc 52.74, Est GFR (MDRD) Af Amer 74, Est GFR (MDRD) Non-Af 61, BUN/Creatinine Ratio 23.0 H, Glucose 126 H, Calcium 7.4 L, Total Bilirubin 0.40, AST 38 H, ALT 50, Alkaline Phosphatase 33 L, Total Protein 5.5 L, Albumin 2.6 L, Globulin 2.9, Albumin/Globulin Ratio 0.9 Micro: Microbiology 02/01/23 20:30 Nasal Secretion SARS-CoV-2 & FLU Antigen (Rapid) - Final SARS-CoV-2 (COVID 19) ABG Data ABG results: ABG 02/01/23 02/02/23 20:10 01:05 Specimen Type ART ART Sample Site L Radial R Brach pH 7.29 L 7.28 L Bicarbonate Actual 39.5 H 30.2 H Total CO2 42 32 Base Excess 13 H 4 H O2 Saturation 86 L 96 O2 % 40 40 ABG pCO2 81.9 H* 64.4 H ABG pO2 61 L 92 Hao Test Positive Positive O2 Delivery Device Venti Mask Adult Vent Vent Mode CPAP/PS POC PEEP 8 POC Pressure Suppt 5 Crit Call To/Read Back Yes Blood Gas Notified Whom [facility] Radiography Diagnostic Testing: Radiology Impression Chest X-Ray 02/01/23 19:42 IMPRESSION: There are findings consistent with COPD. There is no evidence of acute chest disease. Electronically Signed: Anuj Wells MD at 20:08 EDT , Chest CTA 02/01/23 20:42 IMPRESSION: Normal CTA chest examination, without a demonstrated pulmonary embolism or arterial dissection. COPD. Fibrotic changes. Probable scarring in the left apex and bilateral costophrenic angles cannot exclude active disease. Consider follow-up in 4-6 months. Electronically Signed: Anuj Wells MD at 22:34 EDT , Physical Exam Narrative GENERAL: cooperative HEENT: Trach collar EYES; Anicteric, Normal Conjunctiva NECK; supple, normal thyroid, RESPIRATORY: Diminished to auscultation CARDIOVASCULAR: Regular S1 S2, GI: soft, normoactive bowel sounds, : No Renal angle tenderness; EXTREMITIES: No edema, no clubbing, MUSCULOSKELETAL: no muscle wasting NEURO: Awake; no lateralizing signs. 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 An assessment of acute hypercapnic respiratory failure secondary to COPD exacerbation as well as COVID-19 infection made admitted to the intensive care unit for further management 1. Acute hypercapnic respiratory failure ? Secondary to COPD exacerbation as well as COVID-19 infection admitted to the intensive care unit 2. COVID-19 infection ? Patient started on remdesivir in addition to symptomatic treatment 3. COPD with acute exacerbation ? Management bronchodilator treatments in addition to systemic steroids 4. Acute kidney injury ? Patient baseline creatinine 0.92 creatinine on admission was 1.67 started on IV fluid with subsequent monitoring with daily BMPs ordered 5. History of head and neck cancer?laryngeal cancer -status post laryngectomy and tracheostomy 6. Hypertension - Blood pressure blood pressure on the low antihypertensives held 7. Hypothyroidism - Patient is on levothyroxine home dose continued 8. DVT prophylaxis ?enoxaparin Time spent in the patient's overall evaluation,decision-making process, review of diagnostic data, adjustment of management, discussion with other providers, nursing nursing and ancillary staff involved in patient's care documentation, 50 Minutes Charges/Coding Visit Charges Inpatient E&M: 71684 [facility] L3
[2023-02-02] MEDS: Aspirin 81 MG TAB.CHEW PO (08:11)
[2023-02-02] MEDS: Levothyroxine 100 MCG Tablet PO (08:11)
[2023-02-02] MEDS: guaiFENesin 600 MG Tablet PO ×2 (08:12→21:01)
[2023-02-02] MEDS: Enoxaparin 40 MG/0.4 ML Syringe SC (08:16)
[2023-02-03] VITALS (31 sets, daily range): BP systolic 84–136; BP diastolic 54–85; PULSE 80–111; RESP 14–22; TEMP 36.6–37.2; O2SAT 88–100; BMI 26.2
[2023-02-03] MEDS: Ipratropium/Albuterol Sulfate 3 ML AMPUL.NEB INHALATION ×6 (02:26→23:21)
[2023-02-03] MEDS: Levothyroxine 100 MCG Tablet PO (05:01)
[2023-02-03 05:11] LABS: Absolute Lymphocyte Count 0.22 X10^3/uL (0.83-4.51); Absolute Neutrophil Count 6.7 X10^3/uL (2.0-7.7); Hemoglobin 11.7 g/dL (13.0-16.5); Lymphocyte # 0.22 X10^3/ul (0.83-4.51); Mean Corp Hgb Conc 31.6 g/dL (32-36); Mean Corpuscular Hgb 29.8 pg (27.0-32.0); Mean Corpuscular Volume 94.4 fL (80-94); Mean Platelet Vol. 9.5 fl (6.2-12.0); Monocyte# 0.44 X10^3/uL; Monocyte% 5.9 % (0-10); NRBC Flagged by Analyzer 0 % (0-5); Neutrophil # 6.72 X10^3/uL (2.7-7.7); Neutrophil % 90.7 % (47-70); POSITIVE DIFFERENTIAL YES; Platelet Count 135 K/mm3 (150-450); RBC Distribution Width CV 12.5 % (11.6-14.6); Red Blood Count 3.92 M/mm3 (4.6-6.2); White Blood Count 7.4 K/mm3 (4.4-11.0)
[2023-02-03 05:16] LABS: Differential Indicated SCAN CRITERIA MET
[2023-02-03 05:24] LABS: Anion Gap 2 (5-15); BUN 16 mg/dL (7-18); BUN/Creat Ratio 28.3 RATIO (10-20); Calcium,Total 8.1 mg/dL (8.5-10.1); Chloride 105 mmol/L (98-107); Creatinine, Serum 0.56 mg/dL (0.70-1.30); EST Glomerular Filtration Rate 154 mL/min (>60); Est Glom Filt Rate - Afr Amer 186 mL/min (>60); Estimated Creatinine Clearance 118.68 ml/min; Glucose 130 mg/dL (74-106); Potassium 4.4 mmol/L (3.5-5.1); Sodium Level 141 mmol/L (136-145)
[2023-02-03 05:51] LABS: Differential Comment SCANNED
--- NOTE | 2023-02-03 09:19 | PCM.PN.INT ---
Assessment & Plan Assessment/Plan (1) COVID-19: PLAN: Continue 5 to 10 days of remdesivir and steroids depending on clinical spots. Titrate FiO2 to keep SPO2 92% or more Treat underlying COPD exacerbation Trial of Shiley discontinuation today since the patient seems to be improving, only requiring 40% FiO2 and has not needed pressure support ventilation If he tolerates the Shiley discontinuation he can transfer to the floor today. When he transfers to the floor, critical care will sign off. (2) Acute exacerbation of chronic obstructive pulmonary disease: PLAN: Routine treatment with methylprednisolone, DuoNeb Restart home inhalers when appropriate out of ICU. (3) History of tracheostomy: PLAN: 8.0 Shiley cuffed endotracheal tube will be discontinued today stoma maintenance will continue. Jaquelin from speech and swallowing will see the patient today when the Shiley tracheostomy is out to check for leak and aspiration. Advance diet as tolerated (4) Acute kidney injury: PLAN: CROW has resolved. (5) Localized cancer of lip, oral cavity and throat: PLAN: Management by [facility] to continue as an outpatient, no active issues. (6) Anxiety and depression: PLAN: Patient is a chronic marijuana user. Will defer to hospitalist regarding resuming his usual anxiety and depression medications. He is intolerant of hydromorphone due to blood pressure fluctuations and severe sweating. (7) History of pulmonary hypertension: PLAN: Likely secondary to COPD, maintain FiO2 to keep saturation greater than 92%. (8) Rectal bleeding: PLAN: Not active at this time. (9) Acute hypercapnic respiratory failure: PLAN: Chronic. Stable. (10) Hypothyroidism: PLAN: Routine home medication continued. PLAN: Plan Critical care time spent with patient at bedside, review of documentation, lab results, radiology and other test results, discussion with colleagues and ancillary staff, clinical management of patient, management of tracheostomy and ventilation was 45 minutes. This time does not include any procedures, if performed[place] [address]. Subjective Subjective Patient would like to have of his Shiley trach out today so he can talk. Feels like his breathing is a little better from COVID, minimal secretions. No fevers chills or sweats, tolerating a regular diet. Objective Data Objective Data 67-year-old man admitted with COVID-19 positive acute on chronic respiratory failure, status post laryngectomy and chronic tracheostomy. Recently admitted for acute exacerbation of COPD at [place], transferred to an LTAC where he became COVID-positive. He is unvaccinated. Admitted here for acute respiratory failure and urgently placed a prophylactic 8.0 cuffed Shiley tracheostomy via stoma to supply adequate oxygen. He was initially on PEEP of 8 pressure support ventilation of 5, now weaned off the ventilator. He is now tolerating being on 40% trach collar and ready to transfer to the floor, if he tolerates a trial of discontinuation of his Shiley trach tube. 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 Anxiety and depression. Current medications: DuoNeb, acetaminophen, amlodipine 10 mg daily discontinued, aspirin 81 mg daily, Lovenox 40 daily, guaifenesin 600 twice daily, levothyroxine 100 mcg daily, methylprednisone 40 mg IV every 8, metoprolol 25 mg p.o. twice daily discontinued, nitroglycerin 0.4 sublingual as needed, remdesivir 100 mg IV every 4 day 3 of 5, with as needed Zofran and oxycodone. Vital Signs: Vital Signs Temp Pulse Resp BP Pulse Ox O2 Del Method O2 Flow Rate 98 F 95 18 94/54 L 100 Trach Collar 10 02/03/23 03:00 02/03/23 07:21 02/03/23 07:21 02/03/23 07:00 02/03/23 07:21 02/03/23 07:45 02/01/23 20:37 FiO2 40 02/03/23 07:45 Oxygen Flow Rate (L/min) 10 Oxygen Delivery Method Trach Collar Weight: 163 lb 5.8 oz Body Mass Index (BMI) 26.2 Current FiO2 40% via trach collar. O2 saturation tracings are poor, but when good waveforms are obtained his sats are in the mid 90s. Intake & Output: Intake and Output for Last 24 Hours 02/01/23 02/02/23 02/03/23 23:59 23:59 23:59 Intake Total 210 / 2104 5205 / 5205 Output Total 2375 / 2375 500 / 500 Balance 210 / 2104 2830 / 2830 -500 / -500 Adequate nutrition Lab / Micro Data Attestation: I reviewed the patient's lab results. Result Diagrams: 02/03/23 04:55 02/03/23 04:55 Labs: Laboratory Results - last 24 hr 02/03/23 04:55: WBC 7.4, RBC 3.92 L, Hgb 11.7 L, Hct 37.0 L, MCV 94.4 H, MCH 29.8, MCHC 31.6 L, RDW Std Deviation 43.0, RDW Coeff of Reynaldo 12.5, Plt Count 135 L, MPV 9.5, Immature Gran % (Auto) 0.400, Neut % (Auto) 90.7 H, Lymph % (Auto) 3.0 L, [place] % (Auto) 5.9, Eos % (Auto) 0.0, Baso % (Auto) 0.0, Absolute Neuts (auto) 6.7, Absolute Lymphs (auto) 0.22 L, Nucleated RBC % 0, Differential Comment SCANNED 02/03/23 04:55: Sodium 141, Potassium 4.4, Chloride 105, Carbon Dioxide 34.0 H, Anion Gap 2 L, BUN 16, Creatinine 0.56 L, Estim Creat Clear Calc 118.68, Est GFR (MDRD) Af Amer 186, Est GFR (MDRD) Non-Af 154, BUN/Creatinine Ratio 28.3 H, Glucose 130 H, Calcium 8.1 L Micro: Microbiology 02/02/23 00:30 Sputum, Induced/Lukens Gram Stain - Final 02/01/23 20:30 Nasal Secretion SARS-CoV-2 & FLU Antigen (Rapid) - Final SARS-CoV-2 (COVID 19) ABG Data Attestation: I personally reviewed and interpreted this ABG as follows: Interpretation: Acute respiratory alkalosis with adequately compensated hypoxemia Radiography Diagnostic Testing: I have personally reviewed films and reports. CT/CTA Chest W/WO Contrast IMPRESSION: Normal CTA chest examination, without a demonstrated pulmonary embolism or arterial dissection. COPD. Fibrotic changes. Probable scarring in the left apex and bilateral costophrenic angles cannot exclude active disease. Consider follow-up in 4-6 months. Electronically Signed: Anuj Wells MD at 22:34 EDT My review shows mild, diffuse bilateral pulmonary interstitial/alveolar infiltrates, worse at the lung bases, no prior CT available for comparison. Chest x-ray 6 3 was reviewed and shows mild bilateral pulmonary infiltrates, worse compared to 2017. Physical Exam Narrative Well-developed well-nourished no respiratory distress, uncomfortable from his trach tube. Sitting up at the bedside. Poor SPO2 tracing, with SPO2 in the mid 90s when tracing is adequate. Fluctuates wildly from the low 70s to mid 90s in a short time without activity. HEENT shows adequate trach site, scant secretions, no rhonchi. No erythema at site. Excess membranes moist Chest has no wheezes rales or rhonchi. Coarse breath sounds, no consolidation or dullness at the bases. Heart regular S1-S2 with no murmurs rubs or gallops Abdomen is soft nontender, positive bowel sounds Extremities have no clubbing cyanosis or edema Neurologic is grossly nonfocal, patient is attempting to talk, with reasonable communication, but impaired by no voicing with the trach tube in place. Skin is warm and dry Charges/Coding Procedures Hospitalists Procedures: 11196 Critial Care 1st Hr
[2023-02-03] MEDS: Enoxaparin 40 MG/0.4 ML Syringe SC (09:28)
[2023-02-03] MEDS: Aspirin 81 MG TAB.CHEW PO (09:28)
[2023-02-03] MEDS: guaiFENesin 600 MG Tablet PO ×2 (09:28→21:08)
--- NOTE | 2023-02-03 11:59 | PCM.PROGNOTE ---
Subjective Subjective Patient seen and examined. He had no complaints. He indicated he was feeling better. He had an uneventful night and per his nurse he has improved. Review of systems otherwise negative. He remains on oxygen via the trach. Objective Data Objective Data Vital Signs: Vital Signs Temp Pulse Resp BP Pulse Ox O2 Del Method O2 Flow Rate 98.1 F 95 22 H 128/82 H 100 Trach Collar 10 02/03/23 08:00 02/03/23 11:00 02/03/23 11:00 02/03/23 11:00 02/03/23 11:00 02/03/23 11:00 02/01/23 20:37 FiO2 40 02/03/23 11:00 Oxygen Flow Rate (L/min) 10 Oxygen Delivery Method Trach Collar Weight: 163 lb 5.8 oz Body Mass Index (BMI) 26.2 Intake & Output: Intake and Output for Last 24 Hours 02/01/23 02/02/23 02/03/23 23:59 23:59 23:59 Intake Total 2104 / 2104 5205 / 5205 Output Total 2375 / 2375 500 / 500 Balance 2104 / 2104 2830 / 2830 -500 / -500 Lab / Micro Data Result Diagrams: 02/03/23 04:55 02/03/23 04:55 Labs: Laboratory Results - last 24 hr 02/03/23 04:55: WBC 7.4, RBC 3.92 L, Hgb 11.7 L, Hct 37.0 L, MCV 94.4 H, MCH 29.8, MCHC 31.6 L, RDW Std Deviation 43.0, RDW Coeff of Reynaldo 12.5, Plt Count 135 L, MPV 9.5, Immature Gran % (Auto) 0.400, Neut % (Auto) 90.7 H, Lymph % (Auto) 3.0 L, [place] % (Auto) 5.9, Eos % (Auto) 0.0, Baso % (Auto) 0.0, Absolute Neuts (auto) 6.7, Absolute Lymphs (auto) 0.22 L, Nucleated RBC % 0, Differential Comment SCANNED 02/03/23 04:55: Sodium 141, Potassium 4.4, Chloride 105, Carbon Dioxide 34.0 H, Anion Gap 2 L, BUN 16, Creatinine 0.56 L, Estim Creat Clear Calc 118.68, Est GFR (MDRD) Af Amer 186, Est GFR (MDRD) Non-Af 154, BUN/Creatinine Ratio 28.3 H, Glucose 130 H, Calcium 8.1 L Micro: Microbiology 02/02/23 00:30 Sputum, Induced/Lukens Gram Stain - Final 02/02/23 00:30 Sputum, Induced/Lukens Respiratory Culture - Preliminary Yeast Like Organism 02/01/23 20:30 Nasal Secretion SARS-CoV-2 & FLU Antigen (Rapid) - Final SARS-CoV-2 (COVID 19) Physical Exam Const alert, oriented x3 and no apparent distress General Appearance: cooperative HEENT normocephalic, head/scalp atraumatic and moist oral mucous membranes Eyes PERRL and EOMs intact bilaterally Neck no lymphadenopathy and supple Neck Narrative: trach in place Lymph Lymphatic: no lymphadenopathy noted Resp Resp Narrative: Mildly diminished breath sounds bibasally. No wheezes or crackles. On oxygen via the tracheostomy Cardio regular rate, regular rhythm, S1 normal heart sound, S2 normal heart sound and no murmurs GI normal to inspection, nondistended, normoactive bowel sounds, soft to palpation, non-tender and non-distended Extremity normal capillary refill, no clubbing, cyanosis or edema and no calf tenderness Skin General Skin Exam: no breakdown Neuro CN's II-XII intact bilaterally, no focal motor deficits, no sensory deficits noted and deep tendon reflexes 2+ bilaterally Motor Exam: strength 5/5 throughout Psych thought process normal, cooperative and affect normal Appearance: appropriate Assessment & Plan Assessment/Plan (1) Acute hypercapnic respiratory failure: PLAN: Plan #Acute hypercapnic respiratory failure due to COPD exacerbation and COVID-19 infection On remdesivir. Breathing treatments bronchodilators. Titrate oxygen to maintain saturation above 90%. On 40% FiO2 with oxygen. Pulmonology on board #COVID-19 infection: As above #COPD exacerbation: On breathing treatments with bronchodilators. On steroids. #CROW: Resolved. #History of nasopharyngeal cancer: S/p laryngectomy. Has a tracheostomy in place. To follow-up with his oncologist at [facility] on discharge. #Hypertension: Antihypertensives held as blood pressure was running low. Will monitor. #Hypothyroidism: On Synthroid #Chronic marijuana use: Stable. DVT prophylaxis: Lovenox Disposition: Transfer out of ICU to PCU today. Charges/Coding Visit Charges Inpatient E&M: 24082 Subs Hosp L2
--- NOTE | 2023-02-03 12:18 | CPS ---
PER DR. SAN'S REQUEST, 8 SHILEY WAS REMOVED. PLACED PATIENT ON TRACH COLLAR WITH VENTI MASK 4L 28% SATURATIONS AT 93%. STOMA SITE CLEANED AND DRIED, PT PLACED SPEAKING VALVE. REQUESTED THAT HE SELF SUCTIONS. RN NOTIFIED OF CURRENT CHANGES.
[2023-02-03 13:30] LABS: Pathologist Review Reviewed
--- NOTE | 2023-02-03 14:30 | CASEMGMT ---
RN?CM?ASSESSMENT Pt currently in COVID precautions and S/P laryngectomy w/trach. RN?CM spoke w/pt's dtr, Roman, for initial transition planning/care coordination?assessment.?RN?CM?introduced self and role at [facility]. Care providers, pharmacy, and demographics verified/updated at this time. PCP: Dr Rai Specialists:Dr Leach-oncologist @ [facility], Dr Garcias-radiation onc @ [facility], Dr Magallanes--ENT @ [facility], Dr Mckeon-seasonal sales associate, Speech pathologist @ [facility], and pt has 1st appt scheduled in April @ [facility] csr retail in [place]. Preferred Pharmacy: [facility] Retail Insurance:MCR A/B. Dtr thinks pt has AARP also. She states she will be in to visit w/pt this evening and will see if he has the insurance card w/him and will provide info to staff. Prescription Benefit:?Dtr thinks pt has Rx benefits. Living Will/HPOA:?Has both LW and HCPOA, who is his dtr, Roman. Copies of both are on-file @ [facility]. LNOK: Dtr/Roman SANCHEZ Living Arrangements: Lives alone in one-story home w/one step to enter. Pt independent. Dtr states she lives about 2 miles away. Transportation:?Pt drives. DME: ?States has the following DME: Nebulizer, pulse ox, portable suction machine, O2 through [employer]. Pt has a concentrator and 4 full portable O2 tanks. Dtr states [employer] plans to deliver more portable tanks to pt's home once he returns home, but that they only deliver to pt's home on and Fridays. Dtr states pt had been on 2-3 l/m O2, but it was just recently increased to 6 l/m after recent d/c from the hospital. Call placed to [facility] and spoke w/Kerry @ [phone]. Ext: [phone]. Current O2 orders are for: 6 l/m, although she states prior home O2 testing by the hospital showed pt was 90% on 3 l/m, the physician ordered the 6 l/m d/t wanted his pulse ox to be maintained @ a higher reading. She states they did deliver 10 L tanks to pt's home. Kerry asks for any updated O2 testing/orders be faxed to [facility] @ [phone], and if pt is not requiring that much O2, they will draft roller picker the 10 L tanks from pt's home @ d/c. Dtr states they have a shower chair available to borrow. HHC/SNF: Pt has been to either [facility] or [facility] and has had HHC in the past. Dtr states wishes for pt to return home and does not feel he will need HHC. PT/OT evals reviewed. No additional therapy recommended. PLAN:??Home. Follow for any increase in O2 needs. Funmilayo BSN?RN?CM
[2023-02-04] VITALS (10 sets, daily range): BP systolic 109–137; BP diastolic 63–83; PULSE 72–113; RESP 16–18; TEMP 36.6–37.2; O2SAT 82–98; BMI 26.5
[2023-02-04] MEDS: Levothyroxine 100 MCG Tablet PO (04:59)
[2023-02-04 05:18] LABS: Absolute Lymphocyte Count 0.26 X10^3/uL (0.83-4.51); Absolute Neutrophil Count 4.7 X10^3/uL (2.0-7.7); Hematocrit 40.2 % (40-54); Hemoglobin 12.6 g/dL (13.0-16.5); Lymphocyte # 0.26 X10^3/ul (0.83-4.51); Lymphocyte % 4.9 % (19-41); Mean Corp Hgb Conc 31.3 g/dL (32-36); Mean Corpuscular Hgb 29.5 pg (27.0-32.0); Mean Corpuscular Volume 94.1 fL (80-94); Mean Platelet Vol. 9.5 fl (6.2-12.0); Monocyte% 5.7 % (0-10); NRBC Flagged by Analyzer 0 % (0-5); Neutrophil # 4.72 X10^3/uL (2.7-7.7); Neutrophil % 89.2 % (47-70); POSITIVE DIFFERENTIAL YES; Platelet Count 143 K/mm3 (150-450); RBC Distribution Width CV 12.3 % (11.6-14.6); RBC Distribution Width SD 42.4 fl (35.1-43.9); Red Blood Count 4.27 M/mm3 (4.6-6.2); White Blood Count 5.3 K/mm3 (4.4-11.0)
[2023-02-04 05:32] LABS: Anion Gap 0 (5-15); BUN 18 mg/dL (7-18); BUN/Creat Ratio 25.8 RATIO (10-20); Calcium,Total 8.4 mg/dL (8.5-10.1); Chloride 104 mmol/L (98-107); EST Glomerular Filtration Rate 121 mL/min (>60); Est Glom Filt Rate - Afr Amer 146 mL/min (>60); Estimated Creatinine Clearance 94.94 ml/min; Glucose 132 mg/dL (74-106); Potassium 4.4 mmol/L (3.5-5.1); Sodium Level 140 mmol/L (136-145)
[2023-02-04 05:37] LABS: Differential Indicated SCAN CRITERIA MET
[2023-02-04 06:18] LABS: Differential Comment SCANNED
[2023-02-04] MEDS: Ipratropium/Albuterol Sulfate 3 ML AMPUL.NEB INHALATION ×2 (07:00→12:14)
--- NOTE | 2023-02-04 07:35 | PCM.PN.INT ---
Assessment & Plan Assessment/Plan (1) Acute hypercapnic respiratory failure: PLAN: Patient continues to improve, is on 37% FiO2, 6 L O2 via trach collar. Transferred to PCU status yesterday; pulmonary and critical care will sign off, thank you for asking us to see this patient. Please call if further input is needed. (2) COVID-19: PLAN: Current recommendations for COVID 19 vaccine after having acute COVID-19 is to wait 3 months after his current infection, therefore he should have the bivalent vaccine in May, and thereafter as recommended (www.cdc.gov/vaccines/covid-19/rvmgabzn-kpsfmibvkmfece-pxqog-43-ngiykjqj-yl.html). (3) Acute exacerbation of chronic obstructive pulmonary disease: PLAN: stable and without wheezing. speech therapy noted no trache device leak; no aspiration or swallowing difficulties, diet as tolerated. (4) History of pulmonary hypertension: PLAN: Keep SpO2 >92%. Subjective Subjective Patient feels better today. Slept well overnight. Is talking by plugging trach with his finger. Coughing small amounts of clear sputum. No wheezing no rhonchi, denies dyspnea. No chest pain fevers chills or sweats. Tolerating p.o. well. Objective Data Objective Data Vital Signs: Vital Signs Temp Pulse Resp BP Pulse Ox O2 Del Method O2 Flow Rate 98.9 F 85 18 109/63 94 Trach Collar 6 02/04/23 03:00 02/04/23 07:00 02/04/23 07:00 02/04/23 03:00 02/04/23 07:00 02/04/23 07:00 02/04/23 07:00 FiO2 37 02/04/23 07:00 Oxygen Flow Rate (L/min) 6 Oxygen Delivery Method Trach Collar Weight: 164 lb 3.91 oz Body Mass Index (BMI) 26.5 Intake & Output: Intake and Output for Last 24 Hours 02/02/23 02/03/23 02/04/23 23:59 23:59 23:59 Intake Total 5205 / 5205 730 / 730 0 / 0 Output Total 2375 / 2375 1300 / 1300 1500 / 1500 Balance 2830 / 2830 -570 / -570 -1500 / -1500 Lab / Micro Data Result Diagrams: 02/04/23 05:00 02/04/23 05:00 Labs: Laboratory Results - last 24 hr 02/01/23 19:29: Diff Path Review Reviewed 02/04/23 05:00: WBC 5.3, RBC 4.27 L, Hgb 12.6 L, Hct 40.2, MCV 94.1 H, MCH 29.5, MCHC 31.3 L, RDW Std Deviation 42.4, RDW Coeff of Reynaldo 12.3, Plt Count 143 L, MPV 9.5, Immature Gran % (Auto) 0.200, Neut % (Auto) 89.2 H, Lymph % (Auto) 4.9 L, [place] % (Auto) 5.7, Eos % (Auto) 0.0, Baso % (Auto) 0.0, Absolute Neuts (auto) 4.7, Absolute Lymphs (auto) 0.26 L, Nucleated RBC % 0, Differential Comment SCANNED 02/04/23 05:00: Sodium 140, Potassium 4.4, Chloride 104, Carbon Dioxide 36.0 H, Anion Gap 0 L, BUN 18, Creatinine 0.70, Estim Creat Clear Calc 94.94, Est GFR (MDRD) Af Amer 146, Est GFR (MDRD) Non-Af 121, BUN/Creatinine Ratio 25.8 H, Glucose 132 H, Calcium 8.4 L Micro: Microbiology 02/02/23 00:30 Sputum, Induced/Lukens Gram Stain - Final 02/02/23 00:30 Sputum, Induced/Lukens Respiratory Culture - Preliminary Yeast Like Organism 02/01/23 20:30 Nasal Secretion SARS-CoV-2 & FLU Antigen (Rapid) - Final SARS-CoV-2 (COVID 19) Physical Exam Narrative Well-developed well-nourished no acute distress, sitting up at bedside. HEENT unchanged from yesterday, anicteric, wearing glasses, hearing grossly normal, mucous membranes moist, no secretions being expelled from trach stoma, which is in good condition. Shiley removed yesterday. Chest is diminished but clear bilaterally with no wheezes rales or rhonchi. No wheeze or rhonchi with requested cough. Cardiac: Regular S1-S2 with no murmurs rubs or gallops Abdomen is soft, nontender, nondistended Extremities have no clubbing cyanosis or edema Neuro is grossly nonfocal, patient is ambulatory. Skin is warm and dry Charges/Coding Visit Charges Inpatient E&M: 34080 Subs Hosp L3
[2023-02-04] MEDS: Enoxaparin 40 MG/0.4 ML Syringe SC (08:26)
[2023-02-04] MEDS: guaiFENesin 600 MG Tablet PO (08:26)
[2023-02-04] MEDS: Aspirin 81 MG TAB.CHEW PO (08:26)
--- NOTE | 2023-02-04 14:57 | DS.PCM_ITS ---
Providers Date of Admission: 02/01/23 Date of Discharge: 02/04/23 Primary Care Physician: Dr. Av Rai MD Consultations 02/01/23 23:16 Consult: Corn Shucker / Pulmonary Medicine Routine Consulting Provider: Pulmonary Medicine roshan Lopes Reason for Consult: Vent management EMERGENT Consult: No MD Notified: Yes Date Notified: 02/01/23 Time Notified: 23:12 Method of Notification: ED Physician Initiated Reason For Visit: RESPIRATORY FAILURE Diagnosis Discharge Diagnosis (1) Acute hypercapnic respiratory failure: Status: Acute Code(s): J96.02 - Acute respiratory failure with hypercapnia (2) COVID-19: Status: Acute Code(s): U07.1 - COVID-19 (3) Acute exacerbation of chronic obstructive pulmonary disease: Status: Chronic Code(s): J44.1 - Chronic obstructive pulmonary disease with (acute) exacerbation (4) History of pulmonary hypertension: Status: Acute Code(s): Z86.79 - Personal history of other diseases of the circulatory system Plan #Acute hypercapnic respiratory failure due to COPD exacerbation and COVID-19 infection * On remdesivir. Breathing treatments bronchodilators. * Titrate oxygen to maintain saturation above 90%. On 40% FiO2 with oxygen. * Pulmonology on board * #COVID-19 infection: As above #COPD exacerbation: On breathing treatments with bronchodilators. On steroids. #CROW: Resolved. #History of nasopharyngeal cancer: S/p laryngectomy. Has a tracheostomy in [facility]. To follow-up with his oncologist at [facility] on discharge. #Hypertension: Antihypertensives held as blood pressure was running low. Will monitor. #Hypothyroidism: On Synthroid #Chronic marijuana use: Stable. DVT prophylaxis: Lovenox Disposition: Transfer out of ICU to PCU today. Medications at Discharge Home Medications budesonide 0.5 mg/2 mL suspension for nebulization (Pulmicort) 2 ml inhalation Q12H 12/29/17 ipratropium 0.5 mg-albuterol 3 mg (2.5 mg base)/3 mL nebulization soln 3 ml inhalation Q6H 10/06/19 levothyroxine 100 mcg tablet 100 mcg PO DAILY 01/25/20 oxygen-air delivery systems ##1 01/25/20 guaifenesin 1,200 mg tablet, extended release 12 hr 600 mg PO BID 01/27/20 arformoterol 15 mcg/2 mL solution for nebulization 2 ml inhalation BID 02/01/23 aspirin 81 mg capsule 81 mg PO DAILY 02/01/23 metoprolol tartrate 25 mg tablet 25 mg PO BID 02/01/23 nitroglycerin 0.4 mg sublingual tablet 0.4 mg sublingual Q5M PRN Chest Pain 02/01/23 prednisone 10 mg tablet 10 mg PO DAILY 02/01/23 roflumilast 500 mcg tablet 500 mcg PO DAILY 02/01/23 prednisone 20 mg tablet 40 mg PO DAILY #10 tabs 02/04/23 Hospital Course Operations None Procedures None Summary of Care Provided Minutes Spent on Discharge: 55 Hospital Course: Patient is a 67-year-old male with a past medical history as outlined who was admitted through the ED on 02/01/2023 with a complaint of shortness of breath. He had been recently admitted at [facility] for COPD exacerbation. Subsequently went to rehab at [place]. While he was there he had a roommate who tested positive for COVID. He was discharged the day before this admission. He will hold. He had been on 2 L of oxygen but at the time of his discharge from the rehab facility he had been on 6 L of oxygen. However at home he started getting more short of breath and became more labored so went to the ED. The place the [facility] trach and patient was placed on a ventilator. He was placed on IV Solu-Medrol and breathing treatments with bronchodilators as well as magnesium. He did improve afterwards. He did test was positive for COVID. He was admitted and managed for acute hypoxic and hypercapnic respiratory failure due to COVID-19 infection. He was started on remdesivir and prednisone. Critical care was consulted. His breathing gradually improved and he was taken off of the ventilator and placed on oxygen via the tracheostomy. His breathing improved and was weaned down to his baseline 6 L of oxygen. He remained stable and was discharged home on 02/04/2023. He was discharged on p.o. prednisone 40 mg daily for 5 days. He is follow-up with his primary care doctor within 1 to 2 weeks. Patient seen and examined prior to discharge. No complaints and had an uneven tful night. Review of systems otherwise negative. Labs and vitals reviewed. Home medication reviewed and reconciled. Physical Exam Const alert, oriented x3 and no apparent distress General Appearance: cooperative, comfortable and well kempt HEENT normocephalic, head/scalp atraumatic, hearing grossly normal bilaterally and moist oral mucous membranes HEENT Narrative: Has trach in place, on 6 L of oxygen which is his baseline. Eyes PERRL and EOMs intact bilaterally Eyes Narrative: No icterus Neck no lymphadenopathy, supple and no JVD Neck Narrative: trach in place Lymph Lymphatic: no lymphadenopathy noted Resp normal respiratory effort and no retractions Resp Narrative: Mildly diminished breath sounds bibasally. No wheezes or crackles. On oxygen via the tracheostomy Cardio regular rate, regular rhythm, S1 normal heart sound, S2 normal heart sound and no murmurs GI normal to inspection, nondistended, normoactive bowel sounds, soft to palpation, non-tender and non-distended Extremity normal to inspection, full ROM, normal capillary refill, no clubbing, cyanosis or edema and no calf tenderness Skin General Skin Exam: no breakdown Neuro CN's II-XII intact bilaterally, moves all extremities, no focal motor deficits, no sensory deficits noted and deep tendon reflexes 2+ bilaterally Sensorium / Orientation: awake and alert Motor Exam: strength 5/5 throughout Psych thought process normal, cooperative and affect normal Appearance: appropriate Weight / BMI Weight Weight: 164 lb 3.91 oz Body Mass Index (BMI) 26.5 ABG / Lab / Microbiology Data Result Diagrams: 02/04/23 05:00 02/04/23 05:00 Laboratory: Laboratory Results - last 24 hr 02/04/23 05:00: WBC 5.3, RBC 4.27 L, Hgb 12.6 L, Hct 40.2, MCV 94.1 H, MCH 29.5, MCHC 31.3 L, RDW Std Deviation 42.4, RDW Coeff of Reynaldo 12.3, Plt Count 143 L, MPV 9.5, Immature Gran % (Auto) 0.200, Neut % (Auto) 89.2 H, Lymph % (Auto) 4.9 L, Hooker % (Auto) 5.7, Eos % (Auto) 0.0, Baso % (Auto) 0.0, Absolute Neuts (auto) 4.7, Absolute Lymphs (auto) 0.26 L, Nucleated RBC % 0, Differential Comment SCANNED 02/04/23 05:00: Sodium 140, Potassium 4.4, Chloride 104, Carbon Dioxide 36.0 H, Anion Gap 0 L, BUN 18, Creatinine 0.70, Estim Creat Clear Calc 94.94, Est GFR (MDRD) Af Amer 146, Est GFR (MDRD) Non-Af 121, BUN/Creatinine Ratio 25.8 H, Glucose 132 H, Calcium 8.4 L Microbiology: Microbiology 02/01/23 19:29 Blood Culture (Wb) - Left Forearm Blood Culture - Preliminary No growth in 48 hours. 02/01/23 21:08 Blood Culture (Wb) - Arm Right Blood Culture - Preliminary No growth in 48 hours. 02/02/23 00:30 Sputum, Induced/Lukens Gram Stain - Final 02/02/23 00:30 Sputum, Induced/Lukens Respiratory Culture - Final Presumptive C albicans 02/01/23 20:30 Nasal Secretion SARS-CoV-2 & FLU Antigen (Rapid) - Final SARS-CoV-2 (COVID 19) D/C Instructions Discharge Diet: Low fat / Low cholesterol Discharge Activity: Return to Normal Activity Weight Bearing Status: Weight bearing as tolerated Call your doctor if you observe: Fever of 101 or Higher, Shortness of breath, Dizziness, Swelling in the ankles, Chest pain and Increased palpitations (irregular heartbeat) Meaningful Use Info Meaningful Use Diagnoses (Choose all that apply): None applicable Discharge Plan Admission Admit Date/Time: 02/01/23 23:05 Primary Reason for Your Visit: hypoxia due to covid 19 infection Attending Provider: Coretta Zapata Primary Care Provider: Av Rai Consulting Providers: Canelo Watkins ; Tico Suazo ; Jatin Santiago ; Ezequiel Ortiz ; Cassidy Dowling NIGHT TIME NANNY ; Nicko Barry ; Georgi Mace Instructions Patient Instructions: Dealing With the Stress of ..., Coronavirus Disease 2019 (COVID-19): Overview Discharge Orders/Prescriptions Prescriptions: New prednisone 20 mg tablet 40 mg PO DAILY Qty: 10 0RF Continued budesonide [Pulmicort] 0.5 mg/2 mL suspension for nebulization 2 ml INHALATION Q12H levothyroxine 100 mcg tablet 100 mcg PO DAILY Label Comments: TAKE 1 TABLET EVERY DAY AT LEAST 1 HOUR BEFORE TUBE FEED BOLUS (DME) oxygen-air delivery systems device See Rx Instructions .ROUTE .MEDSUPPLY Qty: 1 Rx Instructions: As directed ipratropium-albuterol 0.5 mg-3 mg(2.5 mg base)/3 mL solution for nebulization 3 ml INHALATION Q6H guaifenesin 1,200 MG tablet extended release 12hr 600 mg PO BID prednisone 10 mg Tablet 10 mg PO DAILY nitroglycerin 0.4 mg Tablet, Sublingual 0.4 mg SUBLINGUAL Q5M PRN (Reason: Chest Pain) Rx Instructions: do not exceed 3 doses per episode metoprolol tartrate 25 mg Tablet 25 mg PO BID arformoterol 15 mcg/2 mL Solution For Nebulization 2 ml INHALATION BID roflumilast 500 mcg Tablet 500 mcg PO DAILY aspirin 81 mg Capsule 81 mg PO DAILY Referrals / Follow Up: Av Rai MD [Primary Care Provider] - Within 2 Weeks Disposition Disposition (needs filled in before D/C Order can be placed): Home, Self Care Charges/Coding Visit Charges Inpatient E&M: 80355 Disch Hosp >30min
--- NOTE | 2023-02-04 16:30 | CASEMGMT ---
FREDIS FINNEY recieved updated oxygen orders for patient and script received. FREDIS FINNEY called Kerry at [place] and updated regarding requirements. New script and documentation faxed to [facility]. Per Kerry, she would call and update daughter Paula. FREDIS FINNEY updated FREDIS Murillo.
== END 2023-02-04 18:20 | disposition home or self-care (01) | DRG 177 ==
LOC: ED 22:03 → ICU 23:25
PROVIDERS: Hospitalist; Physician Assistant; Emergency Provider Emergency Medicine; PCP Family Medicine; Visit Provider Student in an Organized Health Care Education/Training Program
DX: U07.1 COVID-19 (principal); J96.21 Acute and chronic respiratory failure with hypoxia; J96.22 Acute and chronic respiratory failure with hypercapnia; N17.9 Acute kidney failure, unspecified; I27.20 Pulmonary hypertension, unspecified; Z93.0 Tracheostomy status; J43.2 Centrilobular emphysema; F41.9 Anxiety disorder, unspecified; I10 Essential (primary) hypertension; K21.9 Gastro-esophageal reflux disease without esophagitis; E03.9 Hypothyroidism, unspecified; F12.90 Cannabis use, unspecified, uncomplicated; I25.2 Old myocardial infarction; Z99.81 Dependence on supplemental oxygen; F32.A Depression, unspecified; N40.0 Benign prostatic hyperplasia without lower urinary tract symptoms; Z66 Do not resuscitate; Z90.02 Acquired absence of larynx; Z79.51 Long term (current) use of inhaled steroids; Z79.82 Long term (current) use of aspirin; Z79.899 Other long term (current) drug therapy; Z85.818 Personal history of malignant neoplasm of other sites of lip, oral cavity, and pharynx; Z87.891 Personal history of nicotine dependence
CPT/HCPCS: 31500; 31720; 36600; 71045; 71275; 80048; 80053; 82803; 83605; 84075; 84484; 85025; 87040; 87070; 87205; 87428; 92610; 93005; 94002; 94003; 94640; 94762; 97162; 97166; 99284; J7030; J7040; J7050; Q9967; A4216; J0248; J3475

== ENCOUNTER 2025-01-25 07:33 | Day surgery (SDC) | payer MEDICARE, SELFPAY ==
--- NOTE | 2025-01-20 13:09 | PAT.ANE_ITS ---
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 When Was Last Pacemaker Check QUESTION #4 FULL TEXT: You/Your Family Experience fever (hyperthermia) with Anesthesia Last Oral Intake Last Oral intake: Last Oral Intake NPO since Meds taken in AM with sips of water? Meds patient instructed to take am of surgery PONV PONV - electronics test engineer: PONV - electronics test engineer Female No 01/20/25 10:44 HX of Motion Sickness No 01/20/25 10:44 HX of N/V After Surgery No 01/20/25 10:44 Non-Smoker Yes 01/20/25 10:44 Duration of Surgery greater No 01/20/25 10:44 than 60 minutes Number of Risk Factors 1 01/20/25 10:44 PONV Score Low Risk 01/20/25 10:44 Height & Weight Height & Weight: Anesthesia: Height & Weight Height 5 ft 6 in 02/03/23 09:20 Respiratory Assessment Respiratory Assessment - electronics test engineer: Respiratory Tract Infection Hx - electronics test engineer Hx Respiratory Tract Infection No 01/20/25 10:44 STOP Sleep Apnea STOP Sleep Apnea - electronics test engineer: STOP Sleep Apnea - electronics test engineer Hx Hypertension Yes: CONTROLLED WITH MED 01/20/25 10:44 Hx Sleep Apnea No 01/20/25 10:44 CPAP No 02/01/23 23:20 BIPAP No 02/01/23 23:20 Do you snore loudly (louder No 01/20/25 10:44 than talking or can be heard Do you often feel tired/ Yes 01/20/25 10:44 fatigued/ sleepy during daytime? Has anyone observed you stop No 01/20/25 10:44 breathing during sleep? STOP Results Positive 01/20/25 10:44 QUESTION #5 FULL TEXT : Do you snore loudly (louder than talking or can be heard through closed doors)? Tobacco Use History Tobacco Use History - electronics test engineer: Tobacco Use History - electronics test engineer Tobacco Use Smoking Status Former smoker 01/20/25 10:44 Hx Tobacco Use No 01/20/25 10:44 Years Smoking Packs Smoked per Day Smoking Cessation Date was Yes - quit smoking within 15 01/20/25 10:44 within the last 15 years years Hx Smoking Cessation Date 09/01/15 01/20/25 10:44 Hx Smoking Cessation No 01/20/25 10:44 Counseling Hematologic Medial History Hematologic Hx - electronics test engineer: Hematologic Medical Hx - clinical documentation consultant Hx of Blood Transfusion No 01/20/25 10:44 Hx of Transfusion in last 3 No 01/20/25 10:44 Months Date of Last Transfusion (if within last 3 months) Ever experience any problems No 01/20/25 10:44 with transfusion(s)? Specify any problems Hx of Preganancy in last 3 N/A 01/20/25 10:44 Months Nurse Filling Out Transfusion DSCHRIBER 01/20/25 10:44 & Questions: Date: 01/20/25 01/20/25 10:44 Time: 10:46 01/20/25 10:44 Patient unable to answer at this time (ie. confused, unrespo /Reproduction History /Reproductive History - electronics test engineer: /Reproductive Hx- electronics test engineer Hx Now No 01/20/25 10:44 Gestational Age (in weeks): EDC: Hx Hx Para Hx Section SAB No 01/20/25 10:44 PFS Medical History (Updated 01/20/25 @ 10:57 by Alissa Jean-Baptiste) Thyroid disease Loss of hearing Hoarseness Wears glasses Wears dentures Anxiety Arthritis Former smoker On home oxygen therapy History of echocardiogram History of stress test History of heart attack Cancer Cardiology follow-up encounter Acute kidney injury History of pulmonary hypertension History of lung cancer Rectal bleeding Marijuana abuse Chronic pulmonary aspiration Benign prostatic hyperplasia without lower urinary tract symptoms History of colon polyps Emphysema lung Hypothyroidism GERD without esophagitis 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 Anxiety and depression Localized cancer of lip, oral cavity and throat Chronic obstructive airway disease Home Medications ?Medication ?Instructions ?Recorded ?Last Taken ?Type budesonide 0.5 mg/2 mL suspension 2 ml inhalation Q12H 12/29/17 01/31/20 05:00 History for nebulization (Pulmicort) 2 ML ipratropium 0.5 mg-albuterol 3 mg 3 ml inhalation Q6H 10/06/19 01/31/20 05:00 History (2.5 mg base)/3 mL nebulization 3 ML soln levothyroxine 100 mcg tablet 100 mcg PO DAILY 01/25/20 01/31/20 05:00 History 100 MCG oxygen-air delivery systems ##1 01/25/20 Unknown Histo ry guaifenesin 1,200 mg tablet, 600 mg PO BID 01/27/20 Un known History extended release 12 hr arformoterol 15 mcg/2 mL solution 2 ml inhalation BID 02/01/23 Unknown History for nebulization aspirin 81 mg capsule 81 mg PO DAILY 02/01/23 Unkn own History metoprolol tartrate 25 mg tablet 25 mg PO BID 02/01/23 Unknown History nitroglycerin 0.4 mg sublingual 0.4 mg sublingual Q5M PRN Chest 02/01/23 Unknown History tablet Pain roflumilast 500 mcg tablet 500 mcg PO DAILY 02/01/23 U nknown History Allergy/AdvReac Type Severity Reaction Status Date / Time hydromorphone HCl (From AdvReac blood Verified 01/20/25 10:40 Dilaudid) pressure fluctuations/severe sweating Family History Father Heart disease Skin cancer Mother Diabetes Alzheimer's dementia Sister COPD (chronic obstructive pulmonary disease) Grandfather Colon cancer Surgical History (Updated 01/20/25 @ 10:56 by Alissa Jean-Baptiste) History of cardiac catheterization History of tracheostomy History of carpal tunnel surgery of right wrist S/P colonoscopy (~12/2017) History of laryngectomy History of esophagogastroduodenoscopy (EGD) (~06/08/15) History of colonoscopy (~12/27/15) Social History Smoking Status: Former smoker how long ago did patient quit smokin years ago alcohol intake: current alcohol intake frequency: a few times a week substance use type: former substance user and marijuana caffeine: Yes Type: coffee Audit: Pertinent Findings Pertinent Findings EKG Perinent findings: 02/01/2023. Sinus tachycardia [address] and T wave abnormality. Stress test pertinent findings: 10/14/2019. Negative EF 61%. Heart catheterization pertinent findings: 10/28/2019. Indication syncope. Conclusion elevated pulmonary artery pressure. PA pressure 34. Consult pertinent findings: Cardiology 10/20/2019. Syncope. Check right heart cath. Recommendation Anesthesia Recommendation Anesthesia recommendation: OPTIMIZED for anesthesia
[2025-01-25] VITALS (9 sets, daily range): BP systolic 76–112; BP diastolic 32–85; PULSE 81–98; RESP 16–18; TEMP 36.3–36.5; O2SAT 98–100; BMI 25.4
[2025-01-25] MEDS: Lactated Ringers 1,000 ML 15 ML IV (08:15)
--- NOTE | 2025-01-25 08:35 | PRE.ANES_ITS ---
ASA Classification* ASA Classification ASA Classification: 3 Assessment & Plan Anesthesia* Anesthesia Assessment Anesthesia Assessment: Discussed sedation and/or anesthesia options, risks, benefits, and alternatives with patient/parents/legal guardian/POA. Questions invited. The patient/parents/legal guardian/POA seems to understand and agrees to proceed with anesthesia plan. Reviewed the physical assessment, medical history, allergy history and patient home medications list prior to surgery/procedure/anesthetic and documented any changes. Performed airway and anesthesia risk assessments. Anesthesia Type Anesthesia Type: MAC History Source History Obtained from:: Patient and Chart Anesthesia Focused Assessment* Temperature: 97.6 F Pulse Rate: 98 Blood Pressure: 112/85 Respiratory Rate: 18 Pulse Ox: 100 Oxygen Delivery Method: Nasal Cannula Oxygen Flow Rate (L/min): 3 Airway Assessment Mouth opens: >3 cm Mallampati Score: II Teeth Condition: Dentures (Patient has full upper and lower dentures. They are out.) Neck Range of motion (ROM): Limited ROM (Slight decrease in extension) Comment: Patient has a tracheostomy. There is a internal prosthesis. He wears a trach collar with oxygen. Focused Labs Anesthesia Preop lab: CBC WBC 5.3 K/mm3 (4.4-11.0) 02/04/23 05:00 02/04/23 RBC 4.27 M/mm3 (4.6-6.2) L 02/04/23 05:00 02/04/23 Hgb 12.6 g/dL (13.0-16.5) L 02/04/23 05:00 3 Hct 40.2 % (40-54) 02/04/23 05:00 02/04/23 Plt Count 143 K/mm3 (150-450) L 02/04/23 05:00 02/04/23 CHEMISTRY Potassium 4.4 mmol/L (3.5-5.1) 02/04/23 05:00 02/04/23 Sodium 140 mmol/L (136-145) 02/04/23 05:00 02/04/23 Magnesium 2.0 mg/dL (1.8-2.4) 08/07/15 17:55 08/07/15 BUN 18 mg/dL (7-18) 02/04/23 05:00 06/06/23 Creatinine 0.70 mg/dL (0.70-1.30) 02/04/23 05:00 02/04/23 Glucose 132 mg/dL (74-106) H 02/04/23 05:00 02/04/23 COAG PT 13.2 SECONDS (11.7-14.9) 10/20/19 12:42 Pre-Assessment Diagnosis/Proposed Procedure Planned Operative Procedure(s): COLONOSCOPY Anesthesia History 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 When Was Last Pacemaker Check QUESTION #4 FULL TEXT: You/Your Family Experience fever (hyperthermia) with Anesthesia Last Oral Intake Last Oral intake: Last Oral Intake NPO since 04:30 01/25/25 08:05 Meds taken in AM with sips of Yes 01/25/25 08:05 water? Meds patient instructed to see medlist 01/25/25 08:05 take am of surgery Any additional information?: Yes NPO since: 04:30 (Patient finished prep at 4:30 AM.) Meds taken in AM with sips of water?: Yes PONV PONV - varnishing unit tool setter: PONV - varnishing unit tool setter Female No 01/20/25 10:44 HX of Motion Sickness No 01/20/25 10:44 HX of N/V After Surgery No 01/20/25 10:44 Non-Smoker Yes 01/20/25 10:44 Duration of Surgery greater No 01/20/25 10:44 than 60 minutes Number of Risk Factors 1 01/20/25 10:44 PONV Score Low Risk 01/20/25 10:44 Height & Weight Height & Weight: Anesthesia: Height & Weight Height 5 ft 6 in 01/25/25 08:05 Weight: 71.4 kg 01/25/25 08:05 Body Mass Index (BMI) 25.4 01/25/25 08:05 Respiratory Assessment Respiratory Assessment - varnishing unit tool setter: Respiratory Tract Infection Hx - varnishing unit tool setter Hx Respiratory Tract Infection No 01/20/25 10:44 STOP Sleep Apnea STOP Sleep Apnea - varnishing unit tool setter: STOP Sleep Apnea - varnishing unit tool setter Hx Hypertension Yes: CONTROLLED WITH MED 01/20/25 10:44 Hx Sleep Apnea No 01/20/25 10:44 CPAP No 02/01/23 23:20 BIPAP No 02/01/23 23:20 Do you snore loudly (louder No 01/20/25 10:44 than talking or can be heard Do you often feel tired/ Yes 01/20/25 10:44 fatigued/ sleepy during daytime? Has anyone observed you stop No 01/20/25 10:44 breathing during sleep? STOP Results Positive 01/20/25 10:44 QUESTION #5 FULL TEXT : Do you snore loudly (louder than talking or can be heard through closed doors)? 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 Specify any problems Hx of Preganancy in last 3 N/A 01/20/25 10:44 Months Nurse Filling Out Transfusion DSCHRIBER 01/20/25 10:44 & Questions: Date: 01/20/25 01/20/25 10:44 Time: 10:46 01/20/25 10:44 Patient unable to answer at this time (ie. confused, unrespo /Reproduction History /Reproductive History - varnishing unit tool setter: /Reproductive Hx- varnishing unit tool setter Hx Now No 01/20/25 10:44 Gestational Age (in weeks): EDC: Hx Hx Para Hx Section SAB No 01/20/25 10:44 Active Medications Active Medications: Current Medications Generic Name Dose Route Start Last Admin Trade Name Freq PRN Reason Stop Dose Admin Lactated Ringer's 1,000 mls @ 15 mls/hr 01/25/25 07:45 01/25/25 08:15 IV 15 mls/hr .Q48H JERRELL Administration PFSH Medical History Thyroid disease Loss of hearing Hoarseness Wears glasses Wears dentures Anxiety Arthritis Former smoker On home oxygen therapy History of echocardiogram History of stress test History of heart attack Cancer Cardiology follow-up encounter Acute kidney injury History of pulmonary hypertension History of lung cancer Rectal bleeding Marijuana abuse Chronic pulmonary aspiration Benign prostatic hyperplasia without lower urinary tract symptoms History of colon polyps Emphysema lung Hypothyroidism GERD without esophagitis 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 Anxiety and depression Localized cancer of lip, oral cavity and throat Chronic obstructive airway disease Home Medications ?Medication ?Instructions ?Recorded ?Last Taken ?Type budesonide 0.5 mg/2 mL suspension 2 ml inhalation Q12H 12/29/17 01/31/20 05:00 History for nebulization (Pulmicort) 2 ML ipratropium 0.5 mg-albuterol 3 mg 3 ml inhalation Q6H 10/06/19 01/25/25 History (2.5 mg base)/3 mL nebulization soln levothyroxine 100 mcg tablet 100 mcg PO DAILY 01/25/20 01/25/25 History oxygen-air delivery systems ##1 01/25/20 Unknown Histo ry guaifenesin 1,200 mg tablet, 600 mg PO BID 01/27/20 History extended release 12 hr arformoterol 15 mcg/2 mL solution 2 ml inhalation BID 02/01/23 Unknown History for nebulization aspirin 81 mg capsule 81 mg PO DAILY 02/01/2312/31 History metoprolol tartrate 25 mg tablet 25 mg PO BID 02/01/23 01/25/25 History nitroglycerin 0.4 mg sublingual 0.4 mg sublingual Q5M PRN Chest 02/01/23 Unknown History tablet Pain roflumilast 500 mcg tablet 500 mcg PO DAILY 02/01/23 0 01/25/25 History Allergy/AdvReac Type Severity Reaction Status Date / Time hydromorphone HCl (From AdvReac blood Verified 01/25/25 08:02 Dilaudid) pressure fluctuations/severe sweating Family History Father Heart disease Skin cancer Mother Diabetes Alzheimer's dementia Sister COPD (chronic obstructive pulmonary disease) Grandfather Colon cancer Surgical History History of cardiac catheterization History of tracheostomy History of carpal tunnel surgery of right wrist S/P colonoscopy (~12/2017) History of laryngectomy History of esophagogastroduodenoscopy (EGD) (~06/08/15) History of colonoscopy (~12/27/15) Social History Smoking Status: Former smoker how long ago did patient quit smokin years ago alcohol intake: current alcohol intake frequency: a few times a week substance use type: former substance user and marijuana caffeine: Yes Type: coffee Review of Systems (Anesthesia) ROS Narrative System reviewed and no additional complaints, except as documented.
--- NOTE | 2025-01-25 09:00 | COLBX_PTH ---
PATIENT: ANDRES TORRES LOC: EN U#:[id number] AGE/SX: 69/M ROOM: RE01/25/[address]: Dr. Trav Amaral MD : 1955 BED: DIS: 01/25/2025 SPEC #: [id number] RECD: 01/25/25 11:12 STATUS: BONIFACIO TALBOT #: [id number] STEPHANY: 01/25/25 09:[address]: Trav Amaral DEPT: SURGICAL PATHOLOGY RECD BY: Mateo Sifuentes ENTERED: 01/25/25 11:40 SP TYPE: COLON BX OTHR DR: Dr. Andres Rai MD Tissues: A - Rectum, NOS Procedures: Surgery Specimen Level IV HEADER OPERATION: Colonoscopy with polypectomy PRE-OP DIAGNOSIS: History of colon polyps TISSUE SUBMITTED: A- Rectal polyp MICROSCOPIC DIAGNOSIS A. Rectum, polyp, biopsy: Hyperplastic polyp. MICROSCOPIC DESCRIPTION Slides are reviewed. GROSS DESCRIPTION A. Received in formalin in a container labeled with the patient's name, date of , and rectal polyp are 2 hunter-pink fragments of mucosal tissue measuring 0.2 x 0.2 x 0.1 cm and 0.3 x 0.3 x 0.3 cm. Submitted in toto in A1. [facility] 01-25-2025 CPT:68268
--- NOTE | 2025-01-25 09:13 | HP.PCM_ITS ---
HPI - General HPI Narrative ANDRES TORRES, is a 69 M who presents for surveillance colonoscopy. His last colonoscopy was 5 years ago and a polyp was removed. He was denying any abdominal pain or blood in the stool. He has no family history of colon cancer. [facility] Medical History (Updated 01/25/25 @ 09:[address] 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 Anxiety and depression Localized cancer of lip, oral cavity and throat Chronic obstructive airway disease Home Medications ?Medication ?Instructions ?Recorded ?Last Taken ?Type budesonide 0.5 mg/2 mL suspension 2 ml inhalation Q12H 12/29/17 01/31/20 05:00 History for nebulization (Pulmicort) 2 ML ipratropium 0.5 mg-albuterol 3 mg 3 ml inhalation Q6H 10/06/19 01/25/25 History (2.5 mg base)/3 mL nebulization soln levothyroxine 100 mcg tablet 100 mcg PO DAILY 01/25/20 01/25/25 History oxygen-air delivery systems ##1 01/25/20 Unknown Histo ry guaifenesin 1,200 mg tablet, 600 mg PO BID 01/27/20 History extended release 12 hr arformoterol 15 mcg/2 mL solution 2 ml inhalation BID 02/01/23 Unknown History for nebulization aspirin 81 mg capsule 81 mg PO DAILY 02/01/2312/31 History metoprolol tartrate 25 mg tablet 25 mg PO BID 02/01/23 01/25/25 History nitroglycerin 0.4 mg sublingual 0.4 mg sublingual Q5M PRN Chest 02/01/23 Unknown History tablet Pain roflumilast 500 mcg tablet 500 mcg PO DAILY 02/01/23 0 01/25/25 History Allergy/AdvReac Type Severity Reaction Status Date / Time hydromorphone HCl (From AdvReac blood Verified 01/25/25 08:02 Dilaudid) pressure fluctuations/severe sweating Family History Father Heart disease Skin cancer Mother Diabetes Alzheimer's dementia Sister COPD (chronic obstructive pulmonary disease) Grandfather Colon cancer Surgical History History of cardiac catheterization History of tracheostomy History of carpal tunnel surgery of right wrist S/P colonoscopy (~12/2017) History of laryngectomy History of esophagogastroduodenoscopy (EGD) (~06/08/15) History of colonoscopy (~12/27/15) Social History Smoking Status: Former smoker how long ago did patient quit smokin years ago alcohol intake: current alcohol intake frequency: a few times a week substance use type: former substance user and marijuana caffeine: Yes Type: coffee Past Medical/Surgical History Planned Operation Planned Operative Procedure(s): COLONOSCOPY S.O.S: No Previous Hospitalizations/Surgeries HX Hospitalizations: No HX of Surgeries: BIOPSY THROAT CA TRACH EGD WITH PEG removed peg tube removed voice box,d/t cancer, TOTAL LARYNGECTOMY COLONOSCOPY 01/16 COLONOSCOPY 12/2018 Any Problems With Anesthesia: No You/Your Family Experience Fever (Hyperthermia) With Anes: No Cholinesterase deficiency: No Cardiovascular Hx Chest Pain within Last 2 months: No Hx of Irregular Heartbeat and/or Afib: No ([facility] 10/2019 W/ DR. BANKS) Hx Heart Attack: No Hx Congestive Heart Failure: No Hx Rheumatic Fever: No Hx Hypertension: Yes (CONTROLLED WITH MED) Hx Internal Defibrillator: No Hx Pacemaker: No Hx Cardiac Catheterization: Yes ([facility] 10/22/19) Hx Cardiac Surgery/Stents/Etc.: No Hx Stress Test: Yes ([facility] 10/14/19) Hx Pain in Legs when Walking/Leg Cramps: No Respiratory Chronic Cough: Yes (PRODUCTIVE) HX of Shortness of Breath: Yes (with exertion) Hoarseness: Yes (HX THROAT CA) Hx Chronic Obstructive Pulmonary Disease (COPD): Yes Hx Asthma: Yes Hx Emphysema: Yes Hx Sleep Apnea: No CPAP: No BIPAP: No Hx Respiratory Tract Infection/Cold (presently): No Do You Snore Loudly (louder than talking or can be heard): No Do You Often Feel Tired/ Fatigued/ Sleepy Dring Daytime?: Yes Has Anyone Observed You Stop Breathing During Sleep?: No Result (for STOP score): Positive Hx Smoking: Yes (QUIT 08/15) Smoking Status: Former smoker Gastrointestinal Controlled With Meds: No Hx Gastrointestinal Disorders: No Hx Gastrointestinal Bleed: No Hx Ulcer: No Hx Hiatal Hernia: No Difficulty Chewing/Swallowing: Yes (THROAT CA) Special diet followed at home: No Hx Unplanned Weight Loss of 20#: No (.) HX Unplanned Weight Gain of 20#: Yes Neurological Hx Seizures: No HX Syncope/Blackout Spells/Unconsciousness: Yes Hx Transient Ischemic Attacks (TIA): No Hx Multiple Sclerosis: No Hx Parkinson's Disease: No Hx Head/Neck Injury: No Hx Headaches: No Hx Back Injury/Pain: Yes (lower back pain at times) Recent Onset of Speech Difficulty: No Restless Legs: No Does patient have nerve stimulator: No Blood Disorder Hx Leukemia: No Bleeding Tendencies: No Hx Deep Vein Thrombosis: No Hx High Cholesterol: No Blood Transmitted Disease: No Hx Hepatitis: No Hx Cirrhosis: No Hx Anemia: No Hx Blood Disorders: No Reproduction : No Genitourinary Hx Renal Disease: No Hx Dialysis: No Musculoskeletal Hx Arthritis: Yes Hx Rheumatoid Arthritis: No Hx Gout: No Recent Onset of an Orthopedic Problem: No Endocrine Hx Diabetes: No Thyroid Disease: No Hx Steroid Therapy: No (.) Psycho/Social Hx Substance Use: Yes (marijuna in the past) Hx Alcohol Use: Yes Hx Anxiety: No Hx Depression: No Mental Illness: No Hx Dementia: No Miscellaneous Hx Cancer: Yes (THROAT DX SEP 2014. TREATED WITH RADIATION AND CHEMOTEHRAPY LUNG THROAT) Recent Exposure to Contagious Disease: No Hx of C-Diff: No Any Loose Teeth: No (full set of dentures) Allergies hydromorphone HCl (From Dilaudid) Adverse Reaction (Verified 01/25/25 08:02) blood pressure fluctuations/severe sweating Maternal: Family History Father Heart disease Skin cancer Mother Diabetes Alzheimer's dementia Sister COPD (chronic obstructive pulmonary disease) Grandfather Colon cancer Diabetes Paternal: Family History Father Heart disease Skin cancer Mother Diabetes Alzheimer's dementia Sister COPD (chronic obstructive pulmonary disease) Grandfather Colon cancer Diabetes Discharge Is Pt Admitted From a Long-Term, or a Retirement: No After D/C, Where Do you Plan to Go: Return Home From the PAT History Number of Risk Factors: 6 Vital Signs Vital Signs Vital Signs: 01/25/25 08:05 01/25/25 08:05 01/25/25 08:44 Temperature 97.6 F L 97.6 F L Temperature Source Temporal Pulse Rate 98 98 Respiratory Rate 18 18 Respiratory Pattern Normal Blood Pressure 112/85 H 112/85 H Blood Pressure Mean 94 Blood Pressure Source Monitor Blood Pressure Position Sitting Blood Pressure Location Left Arm Pulse Ox 100 100 Oxygen Delivery Method Trach Collar Nasal Cannula Oxygen Flow Rate (L/min) 3 3 Weight Weight: 157 lb 6.561 oz Body Mass Index (BMI) 25.4 Physical Exam Const alert and oriented x3 HEENT normocephalic Eyes PERRL Resp normal respiratory effort and normal air movement Cardio regular rate and regular rhythm GI soft to palpation, non-tender and non-distended Extremity normal to inspection Assessment & Plan Assessment/Plan (1) History of colon polyps: PLAN: I explained endoscopy in detail to the patient. I explained the risks including but not limited to stroke or heart attack with anesthesia, perforation of the GI tract, bleeding, infection. I explained that any of these could necessitate further emergency surgery. The patient understands and all questions were answered sufficiently. The patient wishes to proceed with procedure. Trav Amaral MD Pager: [facility] [address] [place] [address] [place] [address] Office: Surgery Risks - Colonoscopy Risks Include but are not Limited To: Risks include but are not limited to: Bleeding, perforation requiring further surgery, inability to complete colonoscopy requiring barium enema.
--- NOTE | 2025-01-25 09:46 | OP.COLON_ITS ---
Patient Name: Av Levy Procedure Date: 01/25/2025 9:25 AM Date of : 1955 Age: 69 Procedure: Colonoscopy Indications: High risk colon cancer surveillance: Personal history of colonic polyps Providers: Trav Amaral MD Medicines: Propofol per Anesthesia Patient Profile: This is a 69 year old male. Refer to note in patient chart for documentation of history and physical. Last Colonoscopy: 5 years ago. Complications: No immediate complications. Estimated blood loss: Minimal. Procedure: Pre-Anesthesia Assessment: - Prior to the procedure, a History and Physical was performed, and patient medications and allergies were reviewed. The patient's tolerance of previous anesthesia was also reviewed. The risks and benefits of the procedure and the sedation options and risks were discussed with the patient. All questions were answered, and informed consent was obtained. Prior Anticoagulants: The patient has taken no anticoagulant or antiplatelet agents. After reviewing the risks and benefits, the patient was deemed in satisfactory condition to undergo the procedure. After I obtained informed consent, the scope was passed under direct vision. Throughout the procedure, the patient's blood pressure, pulse, and oxygen saturations were monitored continuously. The pediatric colonoscope was introduced through the anus and advanced to the cecum, identified by appendiceal orifice and ileocecal valve. The colonoscopy was performed without difficulty. The patient tolerated the procedure well. The quality of the bowel preparation was good. The ileocecal valve, appendiceal orifice, and rectum were photographed. Scope In: 9:28:37 AM Scope Withdrawal Time 0 hours 5 minutes 25 seconds Scope Out: 9:40:37 AM Total Procedure Duration Time 0 hours 12 minutes 0 seconds Findings: The entire examined colon appeared normal on direct and retroflexion views. A small polyp was found in the rectum. The polyp was removed with a hot snare. Resection and retrieval were complete. Impression: - The entire examined colon is normal on direct and retroflexion views. - One small polyp in the rectum, removed with a hot snare. Resected and retrieved. Recommendation: - Discharge patient to home. - Resume previous diet. - Continue present medications. - Await pathology results. - Repeat colonoscopy in 5 years for surveillance. Procedure Code(s): --- Professional --- 94671, Colonoscopy, flexible; with removal of tumor(s), polyp(s), or other lesion(s) by snare technique Diagnosis Code(s): --- Professional --- Z86.010, Personal history of colonic polyps D12.8, Benign neoplasm of rectum CPT copyright 2021 [employer] [place] [employer]. All rights reserved. The codes documented in this report are preliminary and upon rag willow operator review may be revised to meet current compliance requirements. Trav Amaral MD 01/25/2025 9:45:51 AM This report has been signed electronically. Number of Addenda: 0 Note Initiated On: 01/25/2025 9:25 AM
--- NOTE | 2025-01-25 09:46 | OP.CCLET_ITS ---
01/25/2025 Av Rai MD Re : Colonoscopy procedure for Av Greeneliud Dear Dr. Rai This procedure was performed on Saturday, January 25, 2025. My impressions and recommendations are as follows: Impressions : - The entire examined colon is normal on direct and retroflexion views. - One small polyp in the rectum, removed with a hot snare. Resected and retrieved. Recommendations : - Discharge patient to home. - Resume previous diet. - Continue present medications. - Await pathology results. - Repeat colonoscopy in 5 years for surveillance. My findings are described in the full procedure note, which is enclosed. If I can be of further assistance, please feel free to contact me at Doctor phone number(s): , Work: . Sincerely, Trav Amaral MD 01/25/2025 9:45:51 AM This report has been signed electronically.
--- NOTE | 2025-01-25 09:50 | PCM.POST.ANE ---
Anesthesia: Postop Eval I Current Vital Signs Temperature: 97.7 F Pulse Rate: 84 Blood Pressure: 91/66 Respiratory Rate: 18 Pulse Ox: 98 Oxygen Delivery Method: Trach Collar Oxygen Flow Rate (L/min): 4 Assessment Airway patent: Yes Spontaneous unlabored respirations: Yes Mental status: Asleep nausea: No Vomiting: No Anesthesia Complication: No Fluid Hydration Crystalloid volume administer (ml): 400 Total IV fluid infused: 400 Progress Note Anesthesia document: Postop Eval 1 completed: Yes
--- NOTE | 2025-01-25 14:00 | PCM.POSTANE2 ---
Anesthesia Postop Eval I Sum Postop Eval Completion status Anesthesia document: Postop Eval 1 completed: Yes Anesthesia Postop Eval I Summary Anesthesia Postop Eval I Summary: Anesthesia Postop Eval I: Assessment Summary Airway patent Yes 01/25/25 09:51 [email or web address] Spontaneous unlabored Yes 01/25/25 09:51 [email or web address] respirations Mental status Asleep 01/25/25 09:51 [email or web address] nausea No 01/25/25 09:51 [email or web address] Vomiting No 01/25/25 09:51 [email or web address] Anesthesia Postop Eval I: Fluid Summary Crystalloid volume administer 400 01/25/25 09:51 [email or web address] (ml) Colloids volume administered ( ml) Blood Product volume administered (ml) Total IV fluid infused 400 01/25/25 09:51 [email or web address] Anesthesia Postop Eval I: Summary Notes Anesthesia Complication No 01/25/25 09:51 [email or web address] Anesthesia Complication Comment: Post-operative progress note Anesthesia: Postop Eval II Evaluation Mental status: Awake and Calm Pain Level: 0 nausea: No Vomiting: No Complications Anesthesia Complication: No
== END 2025-01-25 10:46 | disposition home or self-care (01) ==
LOC: EN 07:40 → AC 07:42
PROVIDERS: PCP Family Medicine; Referring Provider Family Medicine; Visit Provider Surgery
PROC: 0DJD8ZZ Inspection of Lower Intestinal Tract, Via Natural or Artificial Opening Endoscopic (ICD-10-PCS; CPT 45378; principal; 2025-01-25 08:55)
DX: Z12.11 Encounter for screening for malignant neoplasm of colon (principal); I10 Essential (primary) hypertension; E03.9 Hypothyroidism, unspecified; I25.2 Old myocardial infarction; K62.1 Rectal polyp; Z79.82 Long term (current) use of aspirin; Z79.899 Other long term (current) drug therapy; Z86.0100 Personal history of colon polyps, unspecified; Z87.891 Personal history of nicotine dependence
CPT/HCPCS: 45385; 88305; J2405